=== PATIENT | male | born 1965 | race Caucasian/White ===

== ENCOUNTER 2018-08-02 10:48 | Inpatient (IN) | payer OTHER, MEDICAID, SELFPAY ==
[2018-08-02] VITALS (15 sets, daily range): BP systolic 118–177; BP diastolic 60–88; PULSE 61–78; RESP 13–20; TEMP 36.1–37.4; O2SAT 95–100; BMI 30.8
--- NOTE | 2018-08-02 | DI.RAD.S_ITS ---
PROCEDURE: XR TIBIA FIBULA RT 2V INDICATIONS: LEFT LEG ORIF TECHNIQUE: 2 views of the tibia and fibula were acquired. COMPARISON: None. FINDINGS: Bones: Intraoperative images demonstrate interval open reduction and internal fixation of comminuted distal left tibial fracture with anterograde intramedullary jose antonio and interlocking screw fixation. Postoperative alignment is anatomic. Improved alignment of distal left fibular fracture. Soft tissues: No suspicious soft tissue calcifications or masses. IMPRESSION: Status post interval ORIF of distal left tibial diaphyseal fracture without acute hardware complication. Improved alignment of known distal left fibular fracture. Dictated by: Donavan Martínez M.D. on 08/02/2018 at 18:13 Approved by: Donavan Martínez M.D. on 08/02/2018 at 18:19
--- NOTE | 2018-08-02 10:48 | DI.RAD.S_ITS ---
PROCEDURE: XR ANKLE LT 2V INDICATIONS: fall with obvious deformity TECHNIQUE: 3 views of the ankle were acquired. COMPARISON: None. FINDINGS: Bones: There are moderately displaced comminuted fractures of the distal tibia and fibula. There is mild lateral angulation of the distal fragments. Soft tissues: No tibiotalar joint effusion. Achilles tendon appears normal. IMPRESSION: Distal tibial and fibular fractures as described above Dictated by: Sunitha Jewell M.D. on 08/02/2018 at 11:14 Approved by: Sunitha Jewell M.D. on 08/02/2018 at 11:16
--- NOTE | 2018-08-02 10:49 | DI.RAD.S_ITS ---
PROCEDURE: XR TIBIA FIBULA RT 2V INDICATIONS: obvious deformity TECHNIQUE: 2 views of the tibia and fibula were acquired. COMPARISON: [facility], CT, CT LE LT WO CON, 08/02/2018, 11:27. FINDINGS: Bones: Comminuted fractures are noted involving the distal left tibia and fibula shafts with mild anterior displacement of the distal fracture fragments. No intra-articular extension is evident. There is a retrocalcaneal spur. Irregularity involving the anterior process of the calcaneus is noted. Small ossific/calcific densities are evident at the tip of the medial malleolus. Soft tissues: No suspicious soft tissue calcifications or masses. IMPRESSION: Mildly displaced and comminuted distal left tibia and fibula shaft fractures. Dictated by: Benny Chapa M.D. on 08/02/2018 at 11:43 Approved by: Benny Chapa M.D. on 08/02/2018 at 11:46
--- NOTE | 2018-08-02 11:24 | DI.CT.S_ITS ---
PROCEDURE: CT LE LT W CON INDICATIONS: fracture, request per ortho TECHNIQUE: Noncontrast 1-1.[address] imaging through the left lower leg was performed. Axial, sagittal, and coronal reformatted images are provided for review. COMPARISON: [facility], CR, XR TIBIA FIBULA LT 2V, 08/02/2018, 10:55. FINDINGS: Image quality: Diagnostic. Bones: There is a comminuted fracture identified involving the distal shaft of the tibia with mild anterior displacement of the distal fracture fragment by approximately 1.1 cm and corresponding posterior angulation. No extension of this fracture onto the tibial plafond articular surface is evident. The there also is a mildly comminuted fracture identified involving the distal left fibula shaft. Mild posterior angulation of the distal fracture fragment is identified. There also is anterior displacement of the distal fracture fragment with mild overriding by approximately 11 mm. No extension of this fracture into the joint space is evident. Both fractures demonstrate a moderate lateral rotational displacement and roughly 90?. The ankle mortise appears to be well-maintained. Well-rounded ossific/calcific densities are present in the tip in the medial malleolus, suggesting prior injury. Irregularity involving the anterior process of the calcaneus also suggest previous trauma. There mild to moderate degenerative changes evident involving the mid foot and hindfoot joints. There is a plantar calcaneal spur. Soft tissues: Moderate soft tissue swelling at the fracture sites is evident. No significant muscle atrophy is appreciated. No soft tissue masses or drainable fluid collections are appreciated. Intramuscular edema is noted at the fracture site. Please note that the ligamentous, tendinous, and cartilaginous structures of the knee and ankle joints are not adequately evaluated on CT. IMPRESSION: Comminuted distal tibia and fibula fractures with associated moderate displacement as described. Dictated by: Benny Chapa M.D. on 08/02/2018 at 11:38 Approved by: Benny Chapa M.D. on 08/02/2018 at 11:42
--- NOTE | 2018-08-02 12:18 | ED.LOWEXIN ---
HPI - Extremity Injury (Lower) General Chief Complaint: Extremity Injury, Lower Stated Complaint: Broken L foot Time Seen by Provider: 08/02/18 10:50 Source: patient and EMS Mode of arrival: EMS Limitations: no limitations History of Present Illness HPI Narrative: 52-year-old male nonsmoker with history of diabetes and hypertension presents by aeromedical transport for evaluation of an obviously deformed left lower leg. He was walking his dog when he stepped awkwardly suffering a terrible injury to his lower leg. It is closed, isolated and neurovascularly intact. He was seen and evaluated by primary care provider and flown here for definitive care. He has been NPO since last night. He takes no blood thinners MD complaint: leg injury Onset (ago): hour(s) Type of Injury: inversion Place: home Severity: severe Relieving factors: nothing Exacerbating factors: movement and palpation Context: fall and walking Related Data Home Medications Medication Instructions Recorded Confirmed ferrous sulfate 325 mg PO QPM 08/02/18 08/02/18 insulin glargine [Lantus Solostar 26 units SUBCUT QPM 08/02/18 08/02/18 U-100 Insulin] levothyroxine 88 mcg PO QPM 08/02/18 08/02/18 metoprolol succinate 50 mg PO BID 08/02/18 08/02/18 telmisartan 40 mg PO QPM 08/02/18 08/02/18 Allergies Allergy/AdvReac Type Severity Reaction Status Date / Time atenolol Allergy Severe Chest Pain Verified 08/02/18 14:39 duloxetine [From Cymbalta] Allergy Severe Difficulty Verified 08/02/18 14:39 Breathing hydrocodone [From Vicodin] Allergy Severe afib, Verified 08/02/18 14:39 chest pain oxycodone [From Percocet] Allergy Severe afib Verified 08/02/18 14:39 pregabalin [From Lyrica] Allergy Severe Difficulty Verified 08/02/18 14:39 Breathing Penicillins Allergy Intermediate sob, hives Verified 08/02/18 14:39 Sulfa (Sulfonamide Allergy Intermediate Difficulty Verified 08/02/18 11:11 Antibiotics) Breathing acetaminophen [From Vicodin] Allergy caution Verified 08/02/18 14:37 with liver issues liraglutide [From Victoza] AdvReac Severe Palpitation Verified 08/02/18 12:32 s lisinopril AdvReac Cough Verified 08/02/18 14:39 Review of Systems Constitutional Denies chills, Denies fever(s), Denies lethargy and Denies weakness Eyes Denies change in vision, Denies eye discharge, Denies irritation and Denies loss of vision ENT Ears, Nose, Mouth, and Throat: Denies change in voice, Denies neck pain and Denies sore throat Cardiovascular Denies chest pain, Denies irregular heart rhythm, Denies lightheadedness, Denies palpitations, Denies dyspnea, Denies dyspnea on exertion and Denies orthopnea Respiratory Denies cough, Denies dyspnea, Denies dyspnea on exertion and Denies wheezing Gastrointestinal Gastrointestinal: Denies abdominal pain, Denies change in bowel habits, Denies diarrhea, Denies nausea and Denies vomiting Genitourinary Denies hematuria, Denies flank pain, Denies urinary incontinence and Denies urinary urgency Musculoskeletal Reports limited range of motion and Denies neck pain Integumentary/Breasts Denies pruritus, Denies erythema, Denies rash and Denies wounds Neurologic Denies confusion, Denies loss of vision and Denies weakness Psychiatric Denies anxiety, Denies confusion, Denies depression, Denies homicidal ideation and Denies suicidal ideation Endocrine Denies palpitations Hematologic/Lymphatic Denies easy bruising Allergic/Immunologic Denies wheezing PFSH Medical History Atrial arrhythmia (Acute) Cholecystectomy planned (Acute) Constipation (Acute) Diabetes mellitus (Acute) Hernia (Acute) Hypertension (Acute) Hypothyroidism (acquired) (Acute) Family History Other Diabetes mellitus Social History household members: none Smoking Status: Never smoker alcohol intake: current Family History Other Diabetes mellitus Social History household members: none Smoking Status: Never smoker alcohol intake: current Exam Narrative Exam Narrative: GENERAL: 52-year-old male resting comfortably, left lower extremity splinted HEAD: Atraumatic. Normocephalic. No temporal or scalp tenderness. EYES: Pupils equal round and reactive. Extraocular motions intact. No scleral icterus. No injection or drainage. ENT: Nose without bleeding, purulent drainage or septal hematoma. Throat without erythema, tonsillar hypertrophy or exudate. Uvula midline. Airway patent. NECK: Trachea midline. No JVD or lymphadenopathy. Supple, nontender, no meningeal signs. CARDIOVASCULAR: Regular rate and rhythm without murmurs, gallops, or rubs. RESPIRATORY: Clear to auscultation. Breath sounds equal bilaterally. No wheezes, rales, or rhonchi. GASTROINTESTINAL: Abdomen soft, non-tender, nondistended. No hepato-splenomegaly, or palpable masses. No guarding. EXTREMITIES: Obvious deformity to left lower extremity, clothes, isolated, neurovascularly intact.. BACK: Nontender without deformity or crepitance. No flank tenderness. NEURO: AOx3. SKIN: No rash or erythema. Initial Vital Signs Initial Vital Signs: Vital Signs Temperature 97.8 F 08/02/18 10:58 Pulse Rate 61 08/02/18 10:58 Respiratory Rate 18 08/02/18 10:58 Blood Pressure 170/88 H 08/02/18 10:58 Pulse Oximetry 99 08/02/18 10:58 Course Orders Ordered: ED Orders 08/02/18 10:48 XR ankle LT 2V Stat 08/02/18 10:49 XR tibia fibula LT 2V Stat 08/02/18 11:24 CT LE LT wo con Stat 08/02/18 12:08 Basic Metabolic Panel Stat Prothrombin Time INR Stat 08/02/18 12:50 Complete Blood Count AUTO DIFF Stat 08/02/18 13:21 Education, smoking cessation ONGOING 08/03/18 05:00 Basic Metabolic Panel Routine Complete Blood Count AUTO DIFF Routine Fentanyl (Sublimaze) 50 mcg IV Q5MIN PRN PRN Reason: Pain, Moderate (4-6) Ferrous Sulfate (Ferrous Sulfate) 325 mg PO QPM ENRIQUE Sodium Chloride (Normal Saline 0.9%) 1,000 mls @ 100 mls/hr IV CONT ENRIQUE Lactated Ringer's (Lactated Ringers) 1,000 mls @ 42 mls/hr IV NOW ONE Stop: 08/03/18 17:12 Last Infusion: 08/02/18 18:45 Dose: 0 mls/hr Admin: 08/02/18 17:25 Dose: 42 mls/hr Ibuprofen (Advil) 600 mg PO Q6HR PRN PRN Reason: As Needed for Fever/Mild Pain Insulin Glargine (Lantus Solostar (Pen)) 26 unit SUBCUT QPM [facility] Levothyroxine Sodium (Synthroid) 88 mcg PO QPM [facility] Lorazepam (Ativan) 0.5 mg IV NOW PRN PRN Reason: Anxiety Metoclopramide HCl (Reglan) 10 mg IV NOW PRN PRN Reason: Nausea And Vomiting Metoprolol Succinate (Toprol Xl) 50 mg PO BID [facility] Morphine Sulfate (Morphine) 2 mg IV Q4HR PRN PRN Reason: Pain, Moderate (4-6) Morphine Sulfate (Morphine) 2 mg IV Q5M PRN PRN Reason: Pain, Moderate (4-6) Ondansetron HCl (Zofran) 4 mg IV Q8HR PRN PRN Reason: Nausea And Vomiting Ondansetron HCl (Zofran) 4 mg IV NOW PRN PRN Reason: Nausea And Vomiting Telmisartan (Micardis) 40 mg PO QPM [facility] Discontinued Medications Bupivacaine HCl/Epinephrine Bitart (Sensorcaine 0.5% W/ Epi (Pf)) 30 ml INJ NOW ONE Stop: 08/02/18 16:40 Last Admin: 08/02/18 16:40 Dose: 15 ml Cefazolin Sodium/Dextrose (Ancef) 2 gm in 100 mls @ 200 mls/hr IV NOW ONE Stop: 08/02/18 14:10 Clindamycin Phosphate (Cleocin) 900 mg in 50 mls @ 50 mls/hr IV NOW ONE Stop: 08/02/18 17:31 Last Infusion: 08/02/18 15:50 Dose: 0 mls/hr Admin: 08/02/18 15:45 Dose: 50 mls/hr Morphine Sulfate (Morphine) 2 mg IV NOW ONE Stop: 08/02/18 13:03 Last Admin: 08/02/18 13:16 Dose: 2 mg Consultations Consultation #1: Dr. Chappell consulted and will likely take to the OR later tonight, requests admission to hospitalist and CT for further evaluation Consultation #2: hospitalist happy to accept on his service Vital Signs - 8 hr 08/02/18 13:21 08/02/18 13:40 08/02/18 14:13 Temperature 98.5 F 98.8 F Pulse Rate 65 64 68 Respiratory Rate 16 20 18 Blood Pressure 177/72 H 164/76 H Blood Pressure [Right Arm] 158/88 H Pulse Oximetry 100 100 100 08/02/18 18:07 08/02/18 18:12 08/02/18 18:17 Temperature 97.5 F L 97.1 F L Pulse Rate 71 72 71 Respiratory Rate 13 15 14 Blood Pressure 125/67 129/69 118/70 Blood Pressure [Right Arm] Pulse Oximetry 97 95 96 08/02/18 18:22 08/02/18 18:37 08/02/18 18:47 Temperature 97 F L Pulse Rate 72 69 70 Respiratory Rate 15 14 14 Blood Pressure 139/60 140/64 151/80 H Blood Pressure [Right Arm] Pulse Oximetry 97 98 96 MDM - Extremity Injury (Lower) Lab Data Result diagrams: 08/02/18 12:50 08/02/18 12:08 Lab Results 08/02/18 08/02/18 08/02/18 Range/Units 12:08 12:08 12:50 WBC 8.8 (4.5-11.0) X10^3/uL RBC 3.38 L (4.5-5.9) X10^6/uL Hgb 11.4 L (13.5-17.5) g/dL Hct 34.4 L (41-53) % MCV 101.6 H (80-100) fL MCH 33.8 (26-34) PG MCHC 33.2 (30-36) % RDW 12.4 (11.6-14.8) % Plt Count 151 (150-400) X10^3/uL Neut % (Auto) 79.2 H (50-75) % Lymph % (Auto) 15.6 L (25-40) % [place] % (Auto) 4.2 (3-14) % Eos % (Auto) 0.6 L (2-4) % Baso % (Auto) 0.4 (0-2) % Neut # (Auto) 7000 (5331-3600) /uL Lymph # (Auto) 1400 (8297-7579) /uL [place] # (Auto) 400 (0-900) /uL Eos # (Auto) 100 (0-450) /uL Baso # (Auto) 0 (0-100) /uL PT 12.1 (10.1-12.7) SECONDS INR 1.0 (0.9-1.3) Sodium 138 (137-145) mmol/L Potassium 6.2 H (3.4-5.1) mmol/L Chloride 107 (98-107) mmol/L Carbon Dioxide 22 (22-32) mmol/L BUN 27 H (9-20) mg/dL Creatinine 1.80 H (0.66-1.25) mg/dL Estimated GFR 39.8 L (>60) mL/min BUN/Creatinine Ratio 15.0 (6-22) Glucose 171 H (70-100) mg/dL Calcium 9.0 (8.4-10.2) mg/dL Point of Care Testing Glucose POC 161 Imaging Data Tib / Fib Xray: Radiologist's impression: [address] [address] XRay Report Signed Patient: Evelyn Jensen#: [id number] : 1965Acct:[id number] Age/Sex: 52 / MDate of Service: 08/02/18 Loc: GI23M-5 Accession Number: [id number] Procedure: XR tibia fibula LT 2V Ordering Provider: Wong Rosario D.O. PROCEDURE: XR TIBIA FIBULA RT 2V INDICATIONS: obvious deformity TECHNIQUE: 2 views of the tibia and fibula were acquired. COMPARISON: [facility], CT, CT LE LT WO CON, 08/02/2018, 11:27. FINDINGS: Bones: Comminuted fractures are noted involving the distal left tibia and fibula shafts with mild anterior displacement of the distal fracture fragments. No intra-articular extension is evident. There is a retrocalcaneal spur. Irregularity involving the anterior process of the calcaneus is noted. Small ossific/calcific densities are evident at the tip of the medial malleolus. Soft tissues: No suspicious soft tissue calcifications or masses. IMPRESSION: Mildly displaced and comminuted distal left tibia and fibula shaft fractures. Dictated by: Benny Chapa M.D. on 08/02/2018 at 11:43 Approved by: Benny Chapa M.D. on 08/02/2018 at 11:46 CT Leg: Radiologist's impression: Patient: Evelyn Jensen#: [id number] : 1965Acct:[id number] Age/Sex: 52 / MDate of Service: 08/02/18 Loc: US85O-0 Accession Number: [id number] Procedure: CT LE LT wo con Ordering Provider: Wong Rosario D.O. PROCEDURE: CT LE LT W CON INDICATIONS: fracture, request per ortho TECHNIQUE: Noncontrast 1-1.[address] imaging through the left lower leg was performed. Axial, sagittal, and coronal reformatted images are provided for review. COMPARISON: [facility], CR, XR TIBIA FIBULA LT 2V, 08/02/2018, 10:55. FINDINGS: Image quality: Diagnostic. Bones: There is a comminuted fracture identified involving the distal shaft of the tibia with mild anterior displacement of the distal fracture fragment by approximately 1.1 cm and corresponding posterior angulation. No extension of this fracture onto the tibial plafond articular surface is evident. The there also is a mildly comminuted fracture identified involving the distal left fibula shaft. Mild posterior angulation of the distal fracture fragment is identified. There also is anterior displacement of the distal fracture fragment with mild overriding by approximately 11 mm. No extension of this fracture into the joint space is evident. Both fractures demonstrate a moderate lateral rotational displacement and roughly 90?. The ankle mortise appears to be well-maintained. Well-rounded ossific/calcific densities are present in the tip in the medial malleolus, suggesting prior injury. Irregularity involving the anterior process of the calcaneus also suggest previous trauma. There mild to moderate degenerative changes evident involving the mid foot and hindfoot joints. There is a plantar calcaneal spur. Soft tissues: Moderate soft tissue swelling at the fracture sites is evident. No significant muscle atrophy is appreciated. No soft tissue masses or drainable fluid collections are appreciated. Intramuscular edema is noted at the fracture site. Please note that the ligamentous, tendinous, and cartilaginous structures of the knee and ankle joints are not adequately evaluated on CT. IMPRESSION: Comminuted distal tibia and fibula fractures with associated moderate displacement as described. Dictated by: Benny Chapa M.D. on 08/02/2018 at 11:38 Approved by: Benny Chapa M.D. on 08/02/2018 at 11:42 Discharge Plan Departure Patient Disposition: Admitted As Inpatient Clinical Impression: Closed tibial fracture Qualifiers: Encounter type: initial encounter Tibia location: shaft Fracture morphology: comminuted Fracture alignment: displaced Laterality: left Qualified Code(s): S82.252A - Displaced comminuted fracture of shaft of left tibia, initial encounter for closed fracture Discharge Date/Time: 08/02/18 13:21 Interventions: ED Discharge Assessment Last Done: 08/02/18 13:14 Admit Date/Time: 08/02/18 12:42 Admit Provider: Jethro Domingo
[2018-08-02 12:36] LABS: Prothrombin Time 12.1 SECONDS (10.1-12.7)
[2018-08-02 12:39] LABS: Blood Urea Nitrogen 27 mg/dL (9-20); Carbon Dioxide 22 mmol/L (22-32); Chloride 107 mmol/L (98-107); Estimated Glomerular Filt Rate 39.8 mL/min (>60); Glucose 171 mg/dL (70-100); Sodium 138 mmol/L (137-145)
[2018-08-02 12:40] LABS: HEMOLYSIS 67 (0-50); Potassium 6.2 mmol/L (3.4-5.1)
[2018-08-02 13:03] LABS: Add Manual Diff / Slide Review NO; Basophils Absolute Auto 0 /uL (0-100); Basophils Percent Auto 0.4 % (0-2); Eosinophils Absolute Auto 100 /uL (0-450); Eosinophils Percent Auto 0.6 % (2-4); Hematocrit 34.4 % (41-53); Hemoglobin 11.4 g/dL (13.5-17.5); Lymphocytes Absolute Auto 1400 /uL (1100-4500); Lymphocytes Percent Auto 15.6 % (25-40); Mean Corpuscular HGB Conc 33.2 % (30-36); Mean Corpuscular Hemoglobin 33.8 PG (26-34); Mean Corpuscular Volume 101.6 fL (80-100); Monocytes Absolute Auto 400 /uL (0-900); Monocytes Percent Auto 4.2 % (3-14); Neutrophils Absolute Auto 7000 /uL (1500-7000); Neutrophils Percent Auto 79.2 % (50-75); Platelet Count 151 X10^3/uL (150-400); Red Blood Cell Count 3.38 X10^6/uL (4.5-5.9); Red Cell Distribution Width 12.4 % (11.6-14.8); White Blood Cell Count 8.8 X10^3/uL (4.5-11.0)
[2018-08-02] MEDS: MORPHINE 2 MG/ML INJ IV (13:16)
--- NOTE | 2018-08-02 13:28 | P.HP_ITS ---
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 Dr. Chappell from Orthopedics has evaluated him and is taking him for an open reduction internal fixation today. He has a history of hypertension, chronic kidney disease and intermittent atrial fibrillation. He lives in [place] where his primary care physician is but is visiting up here, while selling his father's house currently. He says he has always had a mild anemia. Patient History Medical History (Updated 08/02/18 @ 19:26 by Jethro Domingo MD) Atrial arrhythmia (Acute) Cholecystectomy planned (Acute) Constipation (Acute) Diabetes mellitus (Acute) Hernia (Acute) Hernia, umbilical (Acute) Hypertension (Acute) Hypothyroidism (acquired) (Acute) Normocytic anemia (Acute) Surgical History (Updated 08/02/18 @ 19:26 by Jethro Domingo MD) Hx of inguinal hernia surgery (Acute) Family History (Updated 08/02/18 @ 19:36 by Jethro Domingo MD) Mother Cancer Father Old age Other Diabetes mellitus Social History household members: none Smoking Status: Never smoker alcohol intake: current Family & Social History Family History (Updated 08/02/18 @ 19:36 by Jethro Domingo MD) Mother Cancer Father Old age Other Diabetes mellitus Family history unavailable: No Social History: His backup decision maker is Orquidea Snell. He is full code. He uses alcohol rarely and denies smoking and THC. Safety & Behavioral: Feels Safe in Current Yes Environment Been Physically Hurt or No Threatened By a Person Meds Home Medications Medication Instructions Recorded Confirmed Type ferrous sulfate 325 mg PO QPM 08/02/18 08/02/18 History insulin glargine [Lantus Solostar 26 units SUBCUT QPM 08/02/18 08/02/18 History U-100 Insulin] levothyroxine 88 mcg PO QPM 08/02/18 08/02/18 History metoprolol succinate 50 mg PO BID 08/02/18 08/02/18 History telmisartan 40 mg PO QPM 08/02/18 08/02/18 History Allergies Allergy/AdvReac Type Severity Reaction Status Date / Time atenolol Allergy Severe Chest Pain Verified 08/02/18 14:39 duloxetine [From Cymbalta] Allergy Severe Difficulty Verified 08/02/18 14:39 Breathing hydrocodone [From Vicodin] Allergy Severe afib, Verified 08/02/18 14:39 chest pain oxycodone [From Percocet] Allergy Severe afib Verified 08/02/18 14:39 pregabalin [From Lyrica] Allergy Severe Difficulty Verified 08/02/18 14:39 Breathing Penicillins Allergy Intermediate sob, hives Verified 08/02/18 14:39 Sulfa (Sulfonamide Allergy Intermediate Difficulty Verified 08/02/18 11:11 Antibiotics) Breathing acetaminophen [From Vicodin] Allergy caution Verified 08/02/18 14:37 with liver issues liraglutide [From Victoza] AdvReac Severe Palpitation Verified 08/02/18 12:32 s lisinopril AdvReac Cough Verified 08/02/18 14:39 Review of Systems Review of Systems Positive for ankle pain and recent fall. Negative for fevers, chills, sweats, coughing, chest pain, abdominal pain, nausea, vomiting, diarrhea, rectal bleeding, rash, seizures, trouble talking, new allergies, dysuria All systems reviewed & are unremarkable except as noted in HPI and below Exam Vital Signs (past 8 hours): - 08/02/18 10:58 08/02/18 13:21 Temperature 97.8 F Pulse Rate 61 65 Respiratory Rate 18 16 Blood Pressure 170/88 H Blood Pressure [Right Arm] 158/88 H Pulse Oximetry 99 100 Oxygen Delivery Method Room Air Narrative Exam Narrative: Alert and oriented x3. No apparent distress. Pupils are equally round and reactive to light and accommodation. Extraocular muscles are intact. Sclerae are pink and nonicteric. Throat looks normal. He has a full set of teeth on the bottom but no teeth at all on the top. No lymph nodes are felt head, neck, supraclavicular area. There is no thyromegaly. No carotid bruits are heard. JVD is less than 6 cm. Heart is regular rate and rhythm without murmur. Lungs are clear to auscultation bilaterally. Abdomen is soft, bowel sounds positive, nontender, no organomegaly. Extremities have no ankle edema. There is a splint on the left ankle. Cranial nerves 2-12 tested intact. There is no tremor. Motor function is 5/5 throughout. Balance is not tested due to the ankle fracture. Deep tendon reflexes are symmetric. There is no skin rash or jaundice. Objective Labs Result Diagrams: 08/02/18 12:50 08/02/18 12:08 Labs: Laboratory Results - last 24 hr 08/02/18 08/02/18 08/02/18 12:08 12:08 12:50 WBC 8.8 RBC 3.38 L Hgb 11.4 L Hct 34.4 L MCV 101.6 H MCH 33.8 MCHC 33.2 RDW 12.4 Plt Count 151 Neut % (Auto) 79.2 H Lymph % (Auto) 15.6 L [place] % (Auto) 4.2 Eos % (Auto) 0.6 L Baso % (Auto) 0.4 Neut # (Auto) 7000 Lymph # (Auto) 1400 [place] # (Auto) 400 Eos # (Auto) 100 Baso # (Auto) 0 PT 12.1 INR 1.0 Sodium 138 Potassium 6.2 H Chloride 107 Carbon Dioxide 22 BUN 27 H Creatinine 1.80 H Estimated GFR 39.8 L BUN/Creatinine Ratio 15.0 Glucose 171 H Calcium 9.0 Assessment & Plan Assessment & Plan narrative: Left Tib/Fib Fracture -he has gone for surgical repair to the OR mid day today. -orthopedics will be following him and discharge will depend on their recommendations for weight-bearing/rehabilitation. -recheck CBC tomorrow Diabetes mellitus type 1.5 -Resume Lantus 26 units at night when able to take regular diet -carb choice diet ordered Chronic kidney disease type 3 -recheck BMP tomorrow Paroxysmal atrial fibrillation -This is apparently only a rare problem for him and has in the past been related to use of Percocet and Vicodin which will be avoided at this time. He apparently does well with morphine. Hypertension -continue telmisartan, metoprolol. Normocytic anemia -continue ferrous sulfate and recheck CBC tomorrow Hypothyroidism -continue levothyroxine
--- NOTE | 2018-08-02 13:28 | PM.CN ---
History of Present Illness Date Patient Seen: 08/02/18 Time Patient Seen: 13:28 Chief complaint: Broken L foot Reason for consult: Left distal tibia and fibula fracture Requesting provider: Wong Rosario Narrative: 52-year-old male with a left distal tibia and fibula fracture. He was walking his dog down his steep driveway earlier this morning. He stumbled and tripped and felt a pop as he went down. He was unable to ambulate afterwards. He did not have any prodromal shortness of breath, chest pain or dizziness. He did not hit his head. He is not hurting anywhere else. He had obvious deformity to the leg and was airlifted from [place] to the emergency room. pain is sharp although better with the splint. He has a history of difficulty with narcotics. Vicodin and Percocet have given him atrial fibrillation. He can tolerate morphine. He is an insulin-dependent diabetic with chronic renal failure. He also has a history of anemia. He lives with his father. [facility] Medical History Atrial arrhythmia (Acute) Cholecystectomy planned (Acute) Constipation (Acute) Diabetes mellitus (Acute) Hernia (Acute) Hypertension (Acute) Family History (Updated 08/02/18 @ 13:30 by Hollis Chappell MD) Other Diabetes mellitus Social History household members: none Smoking Status: Never smoker alcohol intake: current Social History household members: none Smoking Status: Never smoker alcohol intake: current Meds Home Medications Medication Instructions Recorded Confirmed Type ferrous sulfate 325 mg PO QPM 08/02/18 08/02/18 History insulin glargine [Lantus Solostar 26 units SUBCUT QPM 08/02/18 08/02/18 History U-100 Insulin] levothyroxine 88 mcg PO QPM 08/02/18 08/02/18 History metoprolol succinate 50 mg PO BID 08/02/18 08/02/18 History telmisartan 40 mg PO QPM 08/02/18 08/02/18 History Allergies Allergy/AdvReac Type Severity Reaction Status Date / Time Sulfa (Sulfonamide Allergy Intermediate Difficulty Verified 08/02/18 11:11 Antibiotics) Breathing acetaminophen [From Vicodin] Allergy Verified 08/02/18 11:11 atenolol Allergy Chest Pain Verified 08/02/18 11:13 duloxetine [From Cymbalta] Allergy Difficulty Verified 08/02/18 11:23 Breathing hydrocodone [From Vicodin] Allergy Chest Pain Verified 08/02/18 11:12 oxycodone [From Percocet] Allergy Verified 08/02/18 11:12 Penicillins Allergy Verified 08/02/18 13:47 pregabalin [From Lyrica] Allergy Difficulty Verified 08/02/18 11:24 Breathing liraglutide [From Victoza] AdvReac Severe Palpitation Verified 08/02/18 12:32 s lisinopril AdvReac Verified 08/02/18 11:14 Review of Systems Constitutional Constitutional: Denies chills, Denies excessive sweating and Denies fever(s) Eyes Eyes: Denies blurry vision Cardiovascular Cardiovascular: Denies chest pain Respiratory Respiratory: Denies chest congestion and Denies wheezing Gastrointestinal Gastrointestinal: Denies abdominal pain Musculoskeletal Musculoskeletal: Reports as per HPI Neurologic Neurologic: Denies behavioral changes Comments: Decreased sensation from peripheral neuropathy in both feet to the ankles Psychiatric Psychiatric: Denies behavioral changes Endocrine Endocrine: Denies excessive sweating Hematologic/Lymphatic Hematologic/Lymphatic: Denies easy bleeding Allergic/Immunologic Allergic/Immunologic: Denies wheezing Exam Vital Signs (past 8 hours): - 08/02/18 10:58 08/02/18 13:21 Temperature 97.8 F Pulse Rate 61 65 Respiratory Rate 18 16 Blood Pressure 170/88 H Blood Pressure [Right Arm] 158/88 H Pulse Oximetry 99 100 Oxygen Delivery Method Room Air Const Orientation: alert and oriented x3 Resp Auscultation: clear to auscultation bilaterally Cardio Rate: regular rate Rhythm: regular rhythm Extrem Other: Mild swelling in the distal left tibia. 1+ dorsalis pedis pulse. Can easily wiggle toes but uncomfortable. Slightly decreased sensation but intact up to ankle and normal above this. Intact integument over the distal tibia. Objective Imaging Left tibia x-ray: My impression: Displaced comminuted fracture of the distal tibia and fibula shafts CT scan of left leg: My impression: Extra-articular fracture of the distal tibia, ending approximately 3.5 cm above the physis. Extra-articular fracture of the distal fibular shaft, well above the ankle. Labs Result Diagrams: 08/02/18 12:50 08/02/18 12:08 Labs: Laboratory Results - last 24 hr 08/02/18 08/02/18 08/02/18 12:08 12:08 12:50 WBC 8.8 RBC 3.38 L Hgb 11.4 L Hct 34.4 L MCV 101.6 H MCH 33.8 MCHC 33.2 RDW 12.4 Plt Count 151 Neut % (Auto) 79.2 H Lymph % (Auto) 15.6 L [place] % (Auto) 4.2 Eos % (Auto) 0.6 L Baso % (Auto) 0.4 Neut # (Auto) 7000 Lymph # (Auto) 1400 [place] # (Auto) 400 Eos # (Auto) 100 Baso # (Auto) 0 PT 12.1 INR 1.0 Sodium 138 Potassium 6.2 H Chloride 107 Carbon Dioxide 22 BUN 27 H Creatinine 1.80 H Estimated GFR 39.8 L BUN/Creatinine Ratio 15.0 Glucose 171 H Calcium 9.0 Assessment & Plan Assessment & Plan narrative: Left distal tibia and fibula fracture- these are extra-articular and high enough above the physis that we should be able to treat this adequately with an intramedullary nail. The fibular fracture is well above the ankle itself and should be fine with stability from the IM nail in the tibia. Risks and benefits of surgery were discussed including not limited to medical risk with heart attack, stroke, , DVT, PE, infection, bleeding, scarring, nerve injury with pain numbness weakness, nonunion, failure to alleviate symptoms, loss of ambulatory status, stiffness, laxity, need for further surgery Medical conditions to be co managed with the medicine service while in the hospital. Diabetes-plan for close glucose monitoring and treatment while in the hospital. Anemia -I do not anticipate excessive blood loss, this should be stable. Chronic renal failure -will monitor in the hospital
--- NOTE | 2018-08-02 13:55 | PM.PREOP ---
Pre-operative Note Interval Note History & Physical reviewed/Exam performed by Physician: Yes Changes to H&P: No
--- NOTE | 2018-08-02 14:01 | PC.NURSE ---
1340 Pt arrived from ED via stretcher. Pt alert & oriented x 4. Pt on r/a . Pt has splint to LLE done by EMS in the [place]. Assisted Pt to stand & pivot into bed. Pt lisa well. 1400 Pt gone via bed to OR .
[2018-08-02] MEDS: CLINDAMYCIN 900 MG/50 ML PIGGYBACK 50 MG IV ×2 (15:45→23:49)
--- NOTE | 2018-08-02 15:54 | P.OP_ITS ---
Operative Date/Time/Diagnoses Date of procedure: 08/02/18 Pre-op diagnosis: closed left distal tibia/fibula shaft fracture Post-op diagnosis: same Procedure & Clinicians Procedure: IM nail Left tibia Same procedure as scheduled: Yes Indications: 52-year-old male with a displaced left distal tibia and fibula fracture. It was felt that he would benefit from ORIF. Risks and benefits of surgery were discussed and appropriate consents obtained. Surgeon: Hollis Chappell Click Yes if Unassisted: Yes Anesthesia Type: General Operative Notes Findings: none Closure Type: primary Specimen(s): none sent Prosthetic devices, grafts, tissues, transplants, or devices: [employer] IM tibial nail -Metanail Applied: catheter Estimated Blood Loss (mL): 30 Blood products transfused: none Procedure in detail: Patient brought to the operating room and intubated on the table. Preoperative antibiotics were given. Time-out was performed. Attention was turned towards the well-marked left leg. A well-padded tourniquet was placed but not inflated. The left leg was prepped and draped in the standard sterile fashion. He was positioned over a radiolucent triangle and x-rays were taken and the fracture was reduced and held with a pelvic clamp. We made a 5 cm longitudinal incision on the medial aspect of the patellar tendon. We sharply split down along the lateral edge to split the retinaculum. We then placed our guidewire. Position was confirmed with fluoroscopy in two views. We then advanced the guidewire down the proximal tibia under fluoroscopy. We did our proximal reaming and then passed a guidewire down the tibial shaft distally across the fracture plane and in to the distal fragment down to the level of the physis using fluoro to visualize our reduction distally. We began reaming with care to hold the fracture well reduced distally every time the Reamer would pass. We then measured and placed our intramedullary nail. We fixed this with 3 distal screws and 2 proximal screws. We used the guide proximally and the Sureshot technique distally. Final x-rays were taken. The wounds were irrigated. The retinaculum and superficial and skin were closed over the knee. The superficial and skin were closed distally. sterile dressings were placed. He was placed in a well-padded posterior splint with stirrups. He was then extubated brought to recovery with no complications. Complications: none Condition: stable Disposition: PACU Plan for aftercare: Inpatient. Up with physical therapy. Touchdown weight- bearing on the left.
--- NOTE | 2018-08-02 16:27 | SUR.OPER ---
Supine on padded OR bed, head on pillow, arms secured on padded arm boards at <90 degrees abduction, legs uncrossed, safety belt at thigh, tape over blanket over lower legs.
[2018-08-02] MEDS: BUPIVACAINE 0.5% W/ EPI (PF) VIAL 30 ML INJ (16:40)
--- NOTE | 2018-08-02 16:40 | PM.PROC.1 ---
Procedures Date/Time Date of procedure: 08/02/18 Time of procedure: 15:05 General Procedure description: Ultrasound guided popliteal sciatic nerve block for post op pain control after left tibia IM nail by Dr. Chappell. Risks and benefits of procedure discussed with patient. ASA monitoring applied to patient. Oxygen given via nasal cannula. 1 mg Versed and 50 mcg fentanyl given for procedural sedation. Skin site was prepped with chlorhexidine and allowed to fully dry. Sterile gloves, mask, hat and probe cover were used to maintain sterility. 2% lidocaine and 30ga needle was used to make a small skin wheal at needle insertion site. Under ultrasound guidance, a 21ga 100mm Pajunk needle was directed near the division of the sciatic nerve into tibial and peroneal nerve in the popliteal fossa (lateral approach). After negative aspiration, 20 mL 0.5% ropivicaine and 5 mg dexamethasone were injected around sciatic nerve. Patient tolerated procedure well. Second nerve block was performed on left saphenous nerve in the adductor canal using US approach at mid thigh. Femoral artery identified and avoided. After negative aspiration, 20mL 0.5% ropivicaine and 5 mg dexamethasone was injected with low resistance. US of Sciatic nerve above, US of saphenous below
[2018-08-02] MEDS: LACTATED RINGERS 1,000 ML 42 ML IV (17:25)
--- NOTE | 2018-08-02 18:50 | SUR.PHASEI ---
Pt transferred to room 206 via bed with glasses. All other belongings left in room prior to coming to OR. Pt's last vital signs stable. Awake, alert, no c/o pain. Report given to JESSICA Norman prior to transfer.
[2018-08-02] MEDS: LACTATED RINGERS 1,000 ML 125 ML IV (20:08)
[2018-08-02] MEDS: FERROUS SULFATE 325 MG TABLET PO (20:12)
[2018-08-02] MEDS: TELMISARTAN 40 MG TABLET PO (20:13)
[2018-08-02] MEDS: LEVOTHYROXINE 88 MCG TABLET PO (20:13)
[2018-08-02] MEDS: ACETAMINOPHEN 325 MG TABLET 975 MG PO (20:14)
[2018-08-02] MEDS: INSULIN GLARGINE 100 UNIT/ML 3ML PEN 26 UNIT SUBCUT (22:03)
[2018-08-03 01:12] VITALS: BP 139/72; PULSE 75; RESP 18; TEMP 36.5; O2SAT 98
[2018-08-03] MEDS: INSULIN ASPART 100 UNIT/ML INSULN PEN SUBCUT ×2 (03:24→08:25)
[2018-08-03 04:59] VITALS: BP 145/73; PULSE 75; RESP 18; TEMP 36.9; O2SAT 98
[2018-08-03] MEDS: LACTATED RINGERS 1,000 ML 125 ML IV (05:10)
[2018-08-03 06:57] LABS: Hematocrit 27.7 % (41-53); Hemoglobin 9.6 g/dL (13.5-17.5); Mean Corpuscular HGB Conc 34.8 % (30-36); Mean Corpuscular Hemoglobin 35.1 PG (26-34); Platelet Count 123 X10^3/uL (150-400); Red Blood Cell Count 2.74 X10^6/uL (4.5-5.9); Red Cell Distribution Width 12.2 % (11.6-14.8); White Blood Cell Count 6.8 X10^3/uL (4.5-11.0)
[2018-08-03 07:29] LABS: BUN Creatinine Ratio 16.7 (6-22); Blood Urea Nitrogen 30 mg/dL (9-20); Calcium 8.8 mg/dL (8.4-10.2); Carbon Dioxide 22 mmol/L (22-32); Chloride 103 mmol/L (98-107); Estimated Glomerular Filt Rate 39.8 mL/min (>60); Glucose 246 mg/dL (70-100); HEMOLYSIS < 15 (0-50); Sodium 136 mmol/L (137-145)
[2018-08-03 07:46] LABS: Potassium 5.8 mmol/L (3.4-5.1)
--- NOTE | 2018-08-03 07:59 | PC.NURSE ---
Addendum entered by Paul Herrera R.N. 08/03/18 13:52: Instructions given, Pt readied for d/c and ride to [facility]. Pt ready for d/c, states he is ready knows who to call with questions at 's office. IV d/c'd intact. Addendum entered by Paul Herrera R.N. 08/03/18 11:51: Stock removed per kalli. Pt states my have a bit of a difficult time voiding and will need to stand up. Original Note: Pt alert and oriented, voices concerns appropriately. Left lower extremity wrapped, clean dry and intact. Pt offers no pain complaint at present. Follows commands. Using IS appropriately.
[2018-08-03 08:00] VITALS: BP 161/76; PULSE 74; RESP 16; TEMP 36.6; O2SAT 99
[2018-08-03] MEDS: CLINDAMYCIN 900 MG/50 ML PIGGYBACK 50 MG IV (08:16)
[2018-08-03 08:23] VITALS: BP 161/76; PULSE 74
[2018-08-03] MEDS: METOPROLOL ER 50 MG TABLET PO (08:23)
[2018-08-03] MEDS: ENOXAPARIN 30 MG/0.3 ML SYRINGE SUBCUT (08:24)
--- NOTE | 2018-08-03 08:40 | P.PN_ITS ---
Subjective Date Patient Seen: 08/03/18 Time Patient Seen: 08:40 Interval history: POD #1 s/p ORIF distal tibia and fibula fracture with Dr. Chappell. His foot is still numb from the block. He also notes a history of diabetic neuropathy. Not requiring any pain medication. He has not worked with PT yet, and will be touchdown weight-bearing on the left. Exam Vital Signs (past 8 hours): - 08/03/18 01:12 08/03/18 04:59 08/03/18 08:00 Temperature 97.7 F 98.5 F 97.9 F Pulse Rate 75 75 74 Respiratory Rate 18 18 16 Blood Pressure 139/72 145/73 H 161/76 H Pulse Oximetry 98 98 99 08/03/18 08:23 Temperature Pulse Rate 74 Respiratory Rate Blood Pressure 161/76 H Pulse Oximetry Oxygen Delivery Method Room Air Oxygen Flow Rate 0 Narrative Exam Narrative: Patient sitting up in bed in NAD. He is alert and oriented X3. Splint on left foot is well fitting and intact. Sensation intact to light touch and brisk capillary refill of left toes. Objective Labs Result Diagrams: 08/03/18 06:55 08/03/18 06:55 Labs: Laboratory Results - last 24 hr 08/02/18 08/02/18 08/02/18 12:08 12:08 12:50 WBC 8.8 RBC 3.38 L Hgb 11.4 L Hct 34.4 L MCV 101.6 H MCH 33.8 MCHC 33.2 RDW 12.4 Plt Count 151 Neut % (Auto) 79.2 H Lymph % (Auto) 15.6 L Campbell % (Auto) 4.2 Eos % (Auto) 0.6 L Baso % (Auto) 0.4 Neut # (Auto) 7000 Lymph # (Auto) 1400 Campbell # (Auto) 400 Eos # (Auto) 100 Baso # (Auto) 0 PT 12.1 INR 1.0 Sodium 138 Potassium 6.2 H Chloride 107 Carbon Dioxide 22 BUN 27 H Creatinine 1.80 H Estimated GFR 39.8 L BUN/Creatinine Ratio 15.0 Glucose 171 H Calcium 9.0 08/03/18 08/03/18 06:55 06:55 WBC 6.8 RBC 2.74 L Hgb 9.6 L Hct 27.7 L MCV 101.0 H MCH 35.1 H MCHC 34.8 RDW 12.2 Plt Count 123 L Neut % (Auto) Lymph % (Auto) Campbell % (Auto) Eos % (Auto) Baso % (Auto) Neut # (Auto) Lymph # (Auto) Campbell # (Auto) Eos # (Auto) Baso # (Auto) PT INR Sodium 136 L Potassium 5.8 H Chloride 103 Carbon Dioxide 22 BUN 30 H Creatinine 1.80 H Estimated GFR 39.8 L BUN/Creatinine Ratio 16.7 Glucose 246 H Calcium 8.8 Assessment & Plan Post-op (1) Closed tibial fracture: Postoperative Procedures Operation Date: 08/02/18 15:00 Actual Procedures Side Surgeon p Intramedullary Nailing Tibia Left Hollis Chappell MD Plan to DC today. Will be touchdown weight-bearing on the left. Lovenox for VTE prophylaxis. Follow up with our office in 1-2 days. Quality VTE Deep Vein Thrombosis/Pulmonary Embolism Present on Admission: No
--- NOTE | 2018-08-03 08:56 | PM.DS.1 ---
History of Present Illness Chief complaint: Broken L foot Narrative: This is a 52-year-old male, long-term diabetic type 1.5 who was walking his dog today and tripped on some loose gravel fracturing the left ankle. Dr. Chappell from Orthopedics has evaluated him and is taking him for an open reduction internal fixation today. He has a history of hypertension, chronic kidney disease and intermittent atrial fibrillation. He lives in [place] where his primary care physician is but is visiting up here, while selling his father's house currently. He says he has always had a mild anemia. Discharge Providers Date of admission: 08/02/18 12:42 Discharge Date: 08/03/18 Consults: 08/02/18 19:14 Consult to Discharge Planning Routine Comment: Consult to Physical Therapy Evaluate & Treat Comment: Physician Instructions: Evaluate and Treat Consult to Respiratory Therapy Evaluate & Treat Comment: Physician Instructions: Evaluate and treat Discharge provider: Akhil Berkowitz MD Summary Discharge Diagnosis: 1. Closed left distal tibia/fibula shaft fracture 2. Chronic kidney disease, stage III 3. Chronic hyperkalemia 4. 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 Chronic anemia 6. Acute blood loss anemia due to lower leg fracture Hospital Course: Patient had ORIF on 08/02/[address] Hollis Chappell of left distal tibia and fibula fracture. Surgery was uncomplicated. He is toe-touch weight-bearing on the left. He has chronic kidney disease with stable labs relative to November 2017 outside labs. He has chronic potassium elevation but on this admission his initial potassium was 6.2 and repeat potassium following morning was 5.8 versus potassium of 5.2 back in November 2017 on outside labs. His angiotensin receptor anna was changed to telmisartan about a month ago. We have decreased his telmisartan dosage from 40 mg down to 20 mg daily due to the hyperkalemia. He has chronic anemia with acute component due to blood loss from leg fracture with initial hemoglobin 11.4 and discharge hemoglobin 9.6. He is asymptomatic from this anemia. He is already on oral iron replacement. Patient will follow-up in a week with Ortho. He is planning to stay in a motel or hotel in town until his ortho follow-up. He is given prescription for walker. He is also advised to have labs rechecked in a couple of weeks with PCP. Status at Discharge Cognitive/behavioral status at discharge: oriented Functional status at discharge: uses cane/walker Time Spent with Patient Greater than 30 minutes Exam Vital Signs (past 8 hours): - 08/03/18 01:12 08/03/18 04:59 08/03/18 08:00 Temperature 97.7 F 98.5 F 97.9 F Pulse Rate 75 75 74 Respiratory Rate 18 18 16 Blood Pressure 139/72 145/73 H 161/76 H Pulse Oximetry 98 98 99 08/03/18 08:23 Temperature Pulse Rate 74 Respiratory Rate Blood Pressure 161/76 H Pulse Oximetry Oxygen Delivery Method Room Air Oxygen Flow Rate 0 Objective Labs Result Diagrams: 08/03/18 06:55 08/03/18 06:55 Labs: Laboratory Results - last 24 hr 08/02/18 08/02/18 08/02/18 12:08 12:08 12:50 WBC 8.8 RBC 3.38 L Hgb 11.4 L Hct 34.4 L MCV 101.6 H MCH 33.8 MCHC 33.2 RDW 12.4 Plt Count 151 Neut % (Auto) 79.2 H Lymph % (Auto) 15.6 L [place] % (Auto) 4.2 Eos % (Auto) 0.6 L Baso % (Auto) 0.4 Neut # (Auto) 7000 Lymph # (Auto) 1400 [place] # (Auto) 400 Eos # (Auto) 100 Baso # (Auto) 0 PT 12.1 INR 1.0 Sodium 138 Potassium 6.2 H Chloride 107 Carbon Dioxide 22 BUN 27 H Creatinine 1.80 H Estimated GFR 39.8 L BUN/Creatinine Ratio 15.0 Glucose 171 H Calcium 9.0 08/03/18 08/03/18 06:55 06:55 WBC 6.8 RBC 2.74 L Hgb 9.6 L Hct 27.7 L MCV 101.0 H MCH 35.1 H MCHC 34.8 RDW 12.2 Plt Count 123 L Neut % (Auto) Lymph % (Auto) [place] % (Auto) Eos % (Auto) Baso % (Auto) Neut # (Auto) Lymph # (Auto) [place] # (Auto) Eos # (Auto) Baso # (Auto) PT INR Sodium 136 L Potassium 5.8 H Chloride 103 Carbon Dioxide 22 BUN 30 H Creatinine 1.80 H Estimated GFR 39.8 L BUN/Creatinine Ratio 16.7 Glucose 246 H Calcium 8.8 Discharge Plan Discharge Plan Patient Disposition: Home Discharge Med Rec/Prescriptions Prescriptions: New acetaminophen [Acetaminophen Extra Strength] 500 mg tablet See Rx Instructions .ROUTE .COMPLEX PRN (Reason: pain) Qty: 60 RF: 0 telmisartan 20 mg tablet 20 mg PO .hs Qty: 14 RF: 0 Continued metoprolol succinate 50 mg tablet extended release 24 hr 50 mg PO BID Qty: 30 RF: 0 levothyroxine 88 mcg tablet 88 mcg PO QPM Qty: 30 RF: 0 ferrous sulfate 325 mg (65 mg iron) tablet 325 mg PO QPM Qty: 30 RF: 0 Changed insulin glargine 100 unit/mL (3 mL) insulin pen 26 unit subcut QPM Qty: 6 RF: 0 Discontinued telmisartan 40 mg tablet 40 mg PO QPM RF: 0 Follow up/Referrals: Hollis Chappell MD [Physician] - (Follow up in 1-2 weeks with our office. ) Provider Discharge Instructions Diet: Diet as Tolerated Activity: Touchdown weight-bearing on the left. Skin/Wound/Dressing Care Report to your healthcare provider any signs of infection, such as:: chills, fever, increased pain, unusual drainage and unusual redness Discharge Data Attending Provider: Jethro Domingo Admit Date/Time: 08/02/18 12:42 Quality VTE Deep Vein Thrombosis/Pulmonary Embolism Present on Admission: No
--- NOTE | 2018-08-03 09:30 | PT.IIE ---
Current Diagnoses Displaced comminuted fracture of shaft of left tibia, initial encounter for closed fracture (08/02/18) Unspecified fracture of lower end of left tibia, initial encounter for closed fracture (08/02/18) Surgery Performed Operation Date: 08/02/18 15:00 Actual Procedures p Intramedullary Nailing Tibia(Left) - Hollis Chappell MD Surgical History (Last Updated 08/02/18 @ 19:26 by Jethro Domingo MD) Hx of inguinal hernia surgery (Acute) Medical History (Last Updated 08/02/18 @ 19:26 by Jethro Domingo MD) Atrial arrhythmia (Acute) Cholecystectomy planned (Acute) Constipation (Acute) Diabetes mellitus (Acute) Hernia (Acute) Hernia, umbilical (Acute) Hypertension (Acute) Hypothyroidism (acquired) (Acute) Normocytic anemia (Acute) Physical Therapy Inpatient Evaluation/Re-Eval M1 PT/OT-IP Prior Functional Status Start: 08/03/18 10:51 Freq: NEEDED Status: Active Protocol: Document 08/03/18 09:30 [facility] (Rec: 08/03/18 11:01 [facility] [id number]) Medical Review Prior Functional Status Medical History Reviewed Yes Mobility and Gait indep community ambulator Activities of Daily Living and IADL's indep I/ADLs Social History Household Members none Living Arrangements House Number of Floors (Floors) One Floor Home Environment Standard Height Toilet Additional Social History Comment Pt plans to stay at the [facility] until his follow up appointments. Pt with fall resulting in closed distal L tib/fib fx, underwent ORIF on 08/02/18. Orders for TDWB on the LLE. M2 PT-IP Current Condition Start: 08/03/18 10:51 Freq: NEEDED Status: Active Protocol: Document 08/03/18 09:30 [facility] (Rec: 08/03/18 11:01 [facility] [id number]) Physical Therapy Current Condition Current Condition Evaluation Date 08/03/18 Treatment Diagnosis L tib/fib fx s/p ORIF 08/02/18, impaired gait Weight Bearing Status Weight Bearing Status Touch Down Weight Bearing M3 PT-IP Subjective Start: 08/03/18 10:51 Freq: NEEDED Status: Active Protocol: Document 08/03/18 09:30 [facility] (Rec: 08/03/18 11:01 [facility] [id number]) Subjective Physical Therapy Visit Type Type Initial Evaluation Visit Start Time 09:30 Visit Stop Time 09:55 Total Visit Minutes 25 Number of LEATHER PATCHER Visits 0 Physical Therapy Visit Comments Patient Comments pt states that he will stay at the [facility] until he is comfortable going home M4 PT-IP Mobility and Gait Start: 08/03/18 10:51 Freq: NEEDED Status: Active Protocol: Document 08/03/18 09:30 [facility] (Rec: 08/03/18 11:01 [facility] [id number]) PT-Bed Mobility Assessment Rolling Level of Assist Independent Supine to Sit Supine to Sit Independent Sit to Supine Sit to Supine Independent Scooting Scooting to Edge of Bed Independent PT-Transfer Assessment Sit to and From Stand Sit to and from Stand Contact Guard Assistance Use of Upper Extremities Equipment Transfer Assistive Device Gait Belt Front Wheeled Walker Transfers Transfer Destination Bed Transfer Technique Stand Step Pivot Transfer Ability Level of Assist Standby Assistance Gait Assessment Gait Gait Assistance Required: Standby Assistance Distance (Feet) 15 Able to Maintain Weight Bearing Status Yes During Gait Assistive Devices Assistive Device Gait Belt Front Wheeled Walker Factors Limiting Gait Function Factors Limiting Gait Function Decreased Activity Tolerance PT-Balance Assessment Sitting Balance and Reactions Static Sitting Balance Ability Good Dynamic Sitting Balance Ability Good Standing Balance and Reactions Static Standing Balance Ability Fair Dynamic Standing Balance Ability Fair Device Used FWW M5 PT-IP Objective Assessments Start: 08/03/18 10:51 Freq: NEEDED Status: Active Protocol: Document 08/03/18 09:30 [facility] (Rec: 08/03/18 11:01 [facility] [id number]) Orientation Orientation/Cognition Level of Alertness Alert Orientation Name Age Birthday Month Date Year Day of Week Place Situation Gross Range of Motion Lower Extremity ROM Assessment Left Impaired Impairments d/t splint s/p surgery Strength Comments Strength Comments RLE strength WNL, able to perform SLR on the L but no MMT performed d/t surgery Sensation Assessment Comments Sensation Comments pt reports mild numbness still in toes on the L M6 PT-IP Treatment Start: 08/03/18 10:51 Freq: NEEDED Status: Active Protocol: Document 08/03/18 09:30 [facility] (Rec: 08/03/18 11:01 [facility] [id number]) Physical Therapy Treatment Education Education Provided Precautions Weight Bearing Status Safety Other Treatments Other Treatment Performed given handout for [facility] stores to obtain w/c if needed M7 PT-IP Assessment and Plan Start: 08/03/18 10:51 Freq: NEEDED Status: Active Protocol: Document 08/03/18 09:30 [facility] (Rec: 08/03/18 11:01 [facility] [id number]) PT Summary Assessment and Plan Potential Rehabilitation Potential Good Status of Condition at Evaluation Stable Summary Impairments Pain ROM Balance Transfers Gait Activity Tolerance Progress Towards Goals Safe For Discharge Assessment Summary Pt able to maintain WB status of TDWB throughout mobility and used a NWB method for gait forward and backward and with turning. Pt was fitted for a FWW with orders written for FWW for home use. Pt will require assistance likely from friend to assist with getting settled into the [facility] , but overall appears safe from a mobility status to d/c when medically stable. Goals Bed Mobility Goal Independent Transfer Goal Independent Gait Goal Independent Gait Distance 50 Days to Meet Goals 2 Frequency of Treatment Frequency Of Treatment Twice a Day Treatment Plan Physical Therapy Treatment Plan Transfer Training Gait Training Therapeutic Exercise Post Op Education Discharge Planning Hot or Cold Pack Neuromuscular Re-ed Other Recommendations and Next Treatment progress gait as tolerated, Focus transfers Recommendations To Nursing Amount of Assist Needed 1 Person Assist Discharge Recommendations PT Discharge Recommendations Home
--- NOTE | 2018-08-03 11:37 | CM.DANOTE ---
DCP: Case received, EMR reviewed and met with patient. Introduced self and role. Was able to retrieve information from patient regarding any needs, and baseline before fall. DCP template completed with information currently available. Patient is a 52 year old male who admitted yesterday afternoon to the care of the hospitalist team. Payer: confirmed: [facility]/Medicaid. Patient came to hospital via ambulance secondary to a fall in the gravel while walking his dog. He lives on [place]. He sustained fracture of left ankle. He is single, lives alone, but had a friend named Kandy that also lives on [place]. She will be here at approximately 1500 to see patient. Patient is being discharged today. For now, he will be staying at the [facility], as he stated, I can't go back to [place] with this fracture, and have better support in this area. His friend, Kandy, will picket labor union his medications at [employer]. This pillowcase cleaner ordered patient a walker, per Dr. Berkowitz. Gave order to Devon Kimbrough Also, called [employer] [facility], for patient stated, it's too hard to get in and out of a taxi. He is prepared to pay for transport. He stated, money is not an issue, for I inherited some money. He understands that transport can be approximately $60.00. They will be here at approximately 1400 to pick him up. He is aware. P: Patient is to be discharged today, and [employer] will pick him up. He will be going to [place]. Malka Macdonald RN/Jewel Bearing Driller
[2018-08-03 12:00] VITALS: BP 165/77
== END 2018-08-03 13:20 | disposition home or self-care (01) | DRG 313 ==
LOC: ED 12:37 → AC 12:42
PROVIDERS: Orthopaedic Surgery; Admitting Provider Family Medicine; Emergency Provider Emergency Medicine; Visit Provider Family Medicine
PROC: 0QSH06Z Reposition Left Tibia with Intramedullary Internal Fixation Device, Open Approach (ICD-10-PCS; CPT 27759; principal; 2018-08-02 15:00)
DX: S82.302A Unspecified fracture of lower end of left tibia, initial encounter for closed fracture (principal); S82.452A Displaced comminuted fracture of shaft of left fibula, initial encounter for closed fracture; N18.3 Chronic kidney disease, stage 3 (moderate); E87.5 Hyperkalemia; D62 Acute posthemorrhagic anemia; E13.9 Other specified diabetes mellitus without complications; Z79.4 Long term (current) use of insulin; I10 Essential (primary) hypertension; D64.9 Anemia, unspecified; E03.9 Hypothyroidism, unspecified; W01.0XXA Fall on same level from slipping, tripping and stumbling without subsequent striking against object, initial encounter; Y92.014 Private driveway to single-family (private) house as the place of occurrence of the external cause
CPT/HCPCS: 36415; 73590; 73600; 73700; 76000; 80048; 82962; 85025; 85027; 85610; 93005; 93010; 96374; 97161; 99282; 99284; J1100; J1650; J2250; J2270; J2405; J2704; J2795; J3010

== ENCOUNTER 2018-08-05 08:00 | Observation (INO) | payer OTHER, MEDICAID, SELFPAY ==
[2018-08-02 13:47] VITALS: BMI 30.8
[2018-08-05] VITALS (8 sets, daily range): BP systolic 143–174; BP diastolic 64–94; PULSE 64–88; RESP 15–18; TEMP 36.2–37.2; O2SAT 96–100; BMI 29.2
--- NOTE | 2018-08-05 08:08 | ED_ITS ---
HPI - Fall General Chief Complaint: Fall Stated Complaint: Multiple falls Time Seen by Provider: 08/05/18 08:05 Source: patient and family Mode of arrival: wheelchair Limitations: no limitations History of Present Illness HPI Narrative: 52M nonsmoker, diabetic with recent orthopedic surgery returns to the emergency department for evaluation. He was seen and evaluated on Sunday after mechanical fall resulted in a closed, complex tibia fibula fracture which resulted in a surgery. He was discharged the following day but stayed locally. Over the weekend he had a very difficult time getting around and caring for himself, suffering multiple falls but no injury. He is concerned that he will not cut it at home and after talking with the orthopedist came to the emergency department for help with taking care of himself. He denies any fever chills, he has no nausea or vomiting. He denies any numbness or tingling of his toes MD complaint: fall Onset (ago): hour(s) Fall from: standing Fall witnessed: yes, by family Place fall occurred: home Loss of consciousness: none Symptoms prior to fall: none Context: tripped/slipped Related Data Previous Rx's Medication Instructions Recorded acetaminophen [Acetaminophen Extra See Rx Instructions .ROUTE 08/03/18 Strength] .COMPLEX PRN #60 tab ferrous sulfate 325 mg PO QPM #30 tab 08/03/18 insulin glargine 26 unit SUBCUT QPM #6 ml 08/03/18 levothyroxine 88 mcg PO QPM #30 tab 08/03/18 metoprolol succinate 50 mg PO BID #30 tab 08/03/18 telmisartan 20 mg PO .hs #14 tab 08/03/18 Allergies Allergy/AdvReac Type Severity Reaction Status Date / Time atenolol Allergy Severe Chest Pain Verified 08/05/18 08:06 duloxetine [From Cymbalta] Allergy Severe Difficulty Verified 08/05/18 08:06 Breathing hydrocodone [From Vicodin] Allergy Severe afib, Verified 08/05/18 08:06 chest pain oxycodone [From Percocet] Allergy Severe afib Verified 08/05/18 08:06 pregabalin [From Lyrica] Allergy Severe Difficulty Verified 08/05/18 08:06 Breathing Penicillins Allergy Intermediate sob, hives Verified 08/05/18 08:06 Sulfa (Sulfonamide Allergy Intermediate Difficulty Verified 08/05/18 08:06 Antibiotics) Breathing acetaminophen [From Vicodin] Allergy caution Verified 08/05/18 08:06 with liver issues liraglutide [From Victoza] AdvReac Severe Palpitation Verified 08/05/18 08:06 s lisinopril AdvReac Cough Verified 08/05/18 08:06 Review of Systems Constitutional Denies chills, Denies fever(s), Denies lethargy and Denies weakness Eyes Denies change in vision, Denies eye discharge, Denies irritation and Denies loss of vision ENT Ears, Nose, Mouth, and Throat: Denies change in voice, Denies neck pain and Denies sore throat Cardiovascular Denies chest pain, Denies irregular heart rhythm, Denies lightheadedness, Denies palpitations, Denies dyspnea, Denies dyspnea on exertion and Denies orthopnea Respiratory Denies cough, Denies dyspnea, Denies dyspnea on exertion and Denies wheezing Gastrointestinal Gastrointestinal: Denies abdominal pain, Denies change in bowel habits, Denies d iarrhea, Denies nausea and Denies vomiting Genitourinary Denies hematuria, Denies flank pain, Denies urinary incontinence and Denies urinary urgency Musculoskeletal Denies neck pain Integumentary/Breasts Denies pruritus, Denies erythema, Denies rash and Denies wounds Neurologic Denies confusion, Denies loss of vision and Denies weakness Psychiatric Denies anxiety, Denies confusion, Denies depression, Denies homicidal ideation and Denies suicidal ideation Endocrine Denies palpitations Hematologic/Lymphatic Denies easy bruising Allergic/Immunologic Denies wheezing Exam Narrative Exam Narrative: GENERAL: 52M resting comfortably, AOx3, GCS 15 HEAD: Atraumatic. Normocephalic. No temporal or scalp tenderness. EYES: Pupils equal round and reactive. Extraocular motions intact. No scleral icterus. No injection or drainage. ENT: Nose without bleeding, purulent drainage or septal hematoma. Throat without erythema, tonsillar hypertrophy or exudate. Uvula midline. Airway patent. NECK: Trachea midline. No JVD or lymphadenopathy. Supple, nontender, no meningeal signs. CARDIOVASCULAR: Regular rate and rhythm without murmurs, gallops, or rubs. RESPIRATORY: Clear to auscultation. Breath sounds equal bilaterally. No wheezes, rales, or rhonchi. GASTROINTESTINAL: Abdomen soft, non-tender, nondistended. No hepato- splenomegaly, or palpable masses. No guarding. EXTREMITIES: LLE in splint. Cap refil <2s, sensation in tact BACK: Nontender without deformity or crepitance. No flank tenderness. NEURO: AOx3. SKIN: No rash or erythema. Initial Vital Signs Initial Vital Signs: Vital Signs Temperature 97.2 F L 08/05/18 08:06 Pulse Rate 81 08/05/18 08:06 Respiratory Rate 15 08/05/18 08:06 Blood Pressure 174/71 H 08/05/18 08:06 Pulse Oximetry 100 08/05/18 08:06 [facility] Medical History Atrial arrhythmia (Acute) Cholecystectomy planned (Acute) Constipation (Acute) Diabetes mellitus (Acute) Hernia (Acute) Hernia, umbilical (Acute) Hypertension (Acute) Hypothyroidism (acquired) (Acute) Normocytic anemia (Acute) Surgical History Hx of inguinal hernia surgery (Acute) Family History (Updated 08/02/18 @ 19:36 by Jethro Domingo MD) Mother Cancer Father Old age Other Diabetes mellitus Social History household members: none Smoking Status: Never smoker alcohol intake: current Family History Mother Cancer Father Old age Other Diabetes mellitus Social History household members: none Smoking Status: Never smoker alcohol intake: current Course Orders Ordered: ED Orders 08/05/18 08:30 Basic Metabolic Panel Stat Complete Blood Count AUTO DIFF Stat 08/05/18 08:55 Venous Blood Gas Stat Sodium Chloride (Normal Saline 0.9%) 1,000 mls @ 1,000 mls/hr IV BOLUS ONE Stop: 08/05/18 09:25 Reevaluation(s) Reevaluation #1: ortho and care management have spoken. Patient will come back into hospital to stabilize condition and ensure a safe disposition Vital Signs - 8 hr 08/05/18 08:06 Temperature 97.2 F L Pulse Rate 81 Respiratory Rate 15 Blood Pressure 174/71 H Pulse Oximetry 100 MDM - Fall Lab Data Result diagrams: 08/05/18 08:30 08/05/18 08:30 Lab Results 08/05/18 08/05/18 Range/Units 08:30 08:30 WBC 6.1 (4.5-11.0) X10^3/uL RBC 2.45 L (4.5-5.9) X10^6/uL Hgb 8.7 L (13.5-17.5) g/dL Hct 24.7 L (41-53) % MCV 100.8 H (80-100) fL MCH 35.4 H (26-34) PG MCHC 35.1 (30-36) % RDW 12.2 (11.6-14.8) % Plt Count 128 L (150-400) X10^3/uL Neut % (Auto) 78.0 H (50-75) % Lymph % (Auto) 14.9 L (25-40) % [place] % (Auto) 6.4 (3-14) % Eos % (Auto) 0.5 L (2-4) % Baso % (Auto) 0.2 (0-2) % Neut # (Auto) 4700 (9538-5123) /uL Lymph # (Auto) 900 L (4029-6728) /uL [place] # (Auto) 400 (0-900) /uL Eos # (Auto) 0 (0-450) /uL Baso # (Auto) 0 (0-100) /uL Sodium 137 (137-145) mmol/L Potassium 5.3 H (3.4-5.1) mmol/L Chloride 102 (98-107) mmol/L Carbon Dioxide 24 (22-32) mmol/L BUN 32 H (9-20) mg/dL Creatinine 1.80 H (0.66-1.25) mg/dL Estimated GFR 39.8 L (>60) mL/min BUN/Creatinine Ratio 17.8 (6-22) Glucose 298 H (70-100) mg/dL Calcium 8.9 (8.4-10.2) mg/dL Point of Care Testing Glucose POC 332 [facility] Narrative Medical decision making narrative: 52-year-old male with little outside support returns after a recent orthopedic surgery. He has had multiple falls and is unable to care for himself at home. He will require hospitalization for stabilization and proper disposition Discharge Plan Departure Patient Disposition: Admitted as Observation Clinical Impression: Adult failure to thrive Closed tibial fracture Qualifiers: Encounter type: subsequent encounter Tibia location: distal Fracture morphology: other fracture Laterality: left Fracture healing: with routine he otoniel Qualified Code(s): S82.392D - Other fracture of lower end of left tibia, subsequent encounter for closed fracture with routine healing
[2018-08-05 08:43] LABS: Basophils Absolute Auto 0 /uL (0-100); Eosinophils Absolute Auto 0 /uL (0-450); Eosinophils Percent Auto 0.5 % (2-4); Hemoglobin 8.7 g/dL (13.5-17.5); Lymphocytes Absolute Auto 900 /uL (1100-4500); Monocytes Absolute Auto 400 /uL (0-900)
[2018-08-05 08:47] LABS: Add Manual Diff / Slide Review NO; Basophils Percent Auto 0.2 % (0-2); Hematocrit 24.7 % (41-53); Lymphocytes Percent Auto 14.9 % (25-40); Mean Corpuscular HGB Conc 35.1 % (30-36); Mean Corpuscular Hemoglobin 35.4 PG (26-34); Mean Corpuscular Volume 100.8 fL (80-100); Monocytes Percent Auto 6.4 % (3-14); Neutrophils Absolute Auto 4700 /uL (1500-7000); Platelet Count 128 X10^3/uL (150-400); Red Blood Cell Count 2.45 X10^6/uL (4.5-5.9); Red Cell Distribution Width 12.2 % (11.6-14.8); White Blood Cell Count 6.1 X10^3/uL (4.5-11.0)
[2018-08-05 08:56] LABS: BUN Creatinine Ratio 17.8 (6-22); Blood Urea Nitrogen 32 mg/dL (9-20); Calcium 8.9 mg/dL (8.4-10.2); Carbon Dioxide 24 mmol/L (22-32); Chloride 102 mmol/L (98-107); Estimated Glomerular Filt Rate 39.8 mL/min (>60); Glucose 298 mg/dL (70-100); HEMOLYSIS 18 (0-50); Potassium 5.3 mmol/L (3.4-5.1); Sodium 137 mmol/L (137-145)
[2018-08-05] MEDS: SODIUM CHLORIDE 0.9% 1,000 ML 1000 ML IV (09:35)
--- NOTE | 2018-08-05 09:41 | PC.NURSE ---
Patient fell Sunday on [place]; Patient sustained a tib/fib fracture; Surgery on Sunday and discharged on Sunday; Presented to Emergency Department today - he is unable to take care of himself, he needs Rehab; Left left with immobilize - pedal pulse strong with brisk cap-refill;
--- NOTE | 2018-08-05 09:45 | PC.NURSE ---
Patient states - I have been able to check my blood sugar since hospital discharge so I have not been taking my whole doses of insulin;
[2018-08-05 10:55] LABS: HCO3 VBG 26 mmol/L (23-28); Oxygen Saturation VBG 38 % (70-75); PCO2 VBG 46.1 mmHg (45-50); PO2 VBG 24 mmHg (35-45); Total CO2 VBG 27 mmol/L (24-29); pH VBG 7.35 (7.33-7.43)
[2018-08-05] MEDS: SODIUM CHLORIDE 0.9% 1,000 ML 125 ML IV ×2 (11:44→19:41)
[2018-08-05] MEDS: METOPROLOL ER 50 MG TABLET PO ×2 (11:49→23:35)
[2018-08-05] MEDS: INSULIN ASPART 100 UNIT/ML INSULN PEN SUBCUT ×2 (11:49→16:52)
--- NOTE | 2018-08-05 16:01 | CM.DANOTE ---
Discharge Planning/Care Management DCP: assessment: case received this morning when pt was in the ER. Dr. Chappell called the CM dept and noted that pt had admitted 08/02 in the [facility] after a fall with a fracture and surgical repair. He was d/c'd on Thursday 08/03 to the [facility] and has been falling and doing poorly since then. Dr. Chappell said he would admit pt and that a plan for facility placement or similar was needed. Have met now with pt and discussed some ideas with him. He does confirm he now has access to funds to pay for care and he is very open to options. Due to lateness of hour will meet again with pt tomorrow and follow to help him set up a plan. Will make sure that PT and OT see him. P: d/c to appropriate setting once this is identified and he is accepted. Advanced directive, confirm from FAMILY Start: 08/05/18 12:56 Freq: Q24H Status: Active Protocol: Document 08/05/18 12:56 YAD (Rec: 08/05/18 12:57 YAD [id number]) Advance Directive, confirm on record Time 12:57 Person contacted Pt Copy received No CM Discharge Assessment Start: 08/05/18 15:59 Freq: Status: Active Protocol: Document 08/05/18 15:59 ITV (Rec: 08/05/18 16:01 ITV [id number]) Discharge Planning Assessment Advance Directives? Yes Advance Directives on File No History Provided By Patient Medical Record Prior Living Arrangements House Household Members none Comment pt does say he has a strong support in the [place] area Is patient alert and oriented? Yes Transportation Arrangement [employer] [facility] Whiteboard Updated in Patient Room with Yes name and ext. 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
--- NOTE | 2018-08-05 16:39 | P.PN_ITS ---
Subjective Date Patient Seen: 08/05/18 Time Patient Seen: 16:39 Interval history: POD #3 s/p ORIF distal tibia and fibula fracture with Dr. Chappell. Not requiring any pain medication. He has been touchdown weight- bearing on the left. He was discharged on Sunday but stayed locally at the [facility]. Over the weekend, he had a very difficult time getting around and caring for himself. He suffered multiple falls but no injury. He is concerned that he will not cut it at home. He states he has Klinefelter syndrome that is the cause of most of his upper extremity weakness that is giving him difficulty using his walker. He denies any fever chills, he has no nausea or vomiting. He denies any numbness or tingling of his toes. He is diabetic and blood sugar has been well controlled. He has stage 3 chronic kidney disease. Exam Vital Signs (past 8 hours): - 08/05/18 09:00 08/05/18 09:30 08/05/18 10:54 Temperature 97.4 F L Pulse Rate 88 64 77 Respiratory Rate 16 18 Blood Pressure 154/64 H Blood Pressure [Left Arm] 167/84 H 164/74 H Pulse Oximetry 100 98 08/05/18 10:55 08/05/18 15:41 Temperature 98.3 F 98.1 F Pulse Rate 78 83 Respiratory Rate 16 18 Blood Pressure 153/82 H 156/94 H Blood Pressure [Left Arm] Pulse Oximetry 100 96 Oxygen Delivery Method Room Air Oxygen Flow Rate 0 Narrative Exam Narrative: Patient is sitting at bedside chair no acute distress. He is alert and oriented x3. Splint on left leg is well-fitting. He has full sens ation in his toes. Brisk capillary refill throughout his toes. He is able to actively wiggle his toes. Objective Labs Result Diagrams: 08/05/18 08:30 08/05/18 08:30 Labs: Laboratory Results - last 24 hr 08/05/18 08/05/18 08/05/18 08:30 08:30 08:50 WBC 6.1 RBC 2.45 L Hgb 8.7 L Hct 24.7 L MCV 100.8 H MCH 35.4 H MCHC 35.1 RDW 12.2 Plt Count 128 L Neut % (Auto) 78.0 H Lymph % (Auto) 14.9 L [place] % (Auto) 6.4 Eos % (Auto) 0.5 L Baso % (Auto) 0.2 Neut # (Auto) 4700 Lymph # (Auto) 900 L [place] # (Auto) 400 Eos # (Auto) 0 Baso # (Auto) 0 VBG pH 7.35 VBG pCO2 46.1 VBG pO2 24 L VBG HCO3 26 VBG Total CO2 27 VBG O2 Saturation 38 L VBG Base Excess 0.0 Sodium 137 Potassium 5.3 H Chloride 102 Carbon Dioxide 24 BUN 32 H Creatinine 1.80 H Estimated GFR 39.8 L BUN/Creatinine Ratio 17.8 Glucose 298 H Calcium 8.9 Assessment & Plan Post-op (1) Closed tibial fracture: Assessment and Plan narrative: Patient will need continued physical thera py. He will continue to be touchdown weight-bearing. He has been slow to mobilize with great difficulty ambulating. He has been unstable and concerned about his safety at home. He would benefit from group home facility following his recovery after surgery. (2) Chronic kidney disease: (3) Diabetes:
[2018-08-05] MEDS: LEVOTHYROXINE 88 MCG TABLET PO (23:35)
[2018-08-05] MEDS: TELMISARTAN 20 MG TABLET PO (23:35)
[2018-08-05] MEDS: INSULIN GLARGINE 100 UNIT/ML 3ML PEN 26 UNIT SUBCUT (23:36)
[2018-08-06] VITALS (9 sets, daily range): BP systolic 128–144; BP diastolic 64–80; PULSE 77–100; RESP 18; TEMP 36–37.2; O2SAT 98–100
[2018-08-06] MEDS: SODIUM CHLORIDE 0.9% 1,000 ML 125 ML IV ×2 (03:45→11:38)
--- NOTE | 2018-08-06 07:32 | P.PN_ITS ---
Subjective Date Patient Seen: 08/06/18 Time Patient Seen: 07:30 Interval history: Fairly comfortable today with pain control. However still difficulty with ambulation. Feels unsteady and wobbly even with a walker. He is working on staying with a friend and a flat 1 level house. Exam Vital Signs (past 8 hours): - 08/05/18 23:35 08/06/18 00:40 08/06/18 03:53 Temperature 98.9 F 98.3 F Pulse Rate 81 80 78 Respiratory Rate 18 18 Blood Pressure 147/77 H 143/75 H 138/64 Pulse Oximetry 98 98 Oxygen Delivery Method Room Air Oxygen Flow Rate 0 Const Orientation: alert and oriented x3 Extrem Other: Dressing CDI. Easily wiggles toes. Decreased but intact sensation throughout the foot. Good capillary refill. Objective Labs Result Diagrams: 08/05/18 08:30 08/05/18 08:30 Labs: Laboratory Results - last 24 hr 08/05/18 08/05/18 08/05/18 08:30 08:30 08:50 WBC 6.1 RBC 2.45 L Hgb 8.7 L Hct 24.7 L MCV 100.8 H MCH 35.4 H MCHC 35.1 RDW 12.2 Plt Count 128 L Neut % (Auto) 78.0 H Lymph % (Auto) 14.9 L [place] % (Auto) 6.4 Eos % (Auto) 0.5 L Baso % (Auto) 0.2 Neut # (Auto) 4700 Lymph # (Auto) 900 L [place] # (Auto) 400 Eos # (Auto) 0 Baso # (Auto) 0 VBG pH 7.35 VBG pCO2 46.1 VBG pO2 24 L VBG HCO3 26 VBG Total CO2 27 VBG O2 Saturation 38 L VBG Base Excess 0.0 Sodium 137 Potassium 5.3 H Chloride 102 Carbon Dioxide 24 BUN 32 H Creatinine 1.80 H Estimated GFR 39.8 L BUN/Creatinine Ratio 17.8 Glucose 298 H Calcium 8.9 Assessment & Plan Post-op Postoperative IM nail left tibia Postoperative day: 4 Postoperative status narrative: He was readmitted as he did not have the upper body strength and stability to manage on his own with a walker. We are going to continue with physical therapy today. most likely discharge to his friend's house tomorrow if he is safe. Postoperative plan: routine post-op care
[2018-08-06] MEDS: METOPROLOL ER 50 MG TABLET PO ×2 (08:28→22:02)
[2018-08-06] MEDS: INSULIN ASPART 100 UNIT/ML INSULN PEN SUBCUT ×3 (08:30→17:24)
--- NOTE | 2018-08-06 10:37 | PC.NURSE ---
Pt is a&ox3. He is up with 1pa and walker. He is not putting any weight on his left lower extremity as he is touch toe weight bearing. Pt has a splint in place with an guanaco wrap. This is cdi and in place. Pt denies any pain or discomfort at this time. Pleasant and cooperative with care. Sitting up in chair and resting. Pt just had a bowel movement and is working with pt at this time.
--- NOTE | 2018-08-06 12:28 | PT.IIE ---
Current Diagnoses Type 2 diabetes mellitus without complications (08/05/18) Chronic kidney disease, unspecified (08/05/18) Other fracture of lower end of left tibia, subsequent encounter for closed fracture with routine healing (08/05/18) Surgical History (Last Reviewed 08/05/18 @ 09:04 by Wong Rosario DO) Hx of inguinal hernia surgery (Acute) Medical History (Last Reviewed 08/05/18 @ 09:04 by Wong Rosario DO) Atrial arrhythmia (Acute) Cholecystectomy planned (Acute) Constipation (Acute) Diabetes mellitus (Acute) Hernia (Acute) Hernia, umbilical (Acute) Hypertension (Acute) Hypothyroidism (acquired) (Acute) Normocytic anemia (Acute) Physical Therapy Inpatient Evaluation/Re-Eval M1 PT/OT-IP Prior Functional Status Start: 08/06/18 11:54 Freq: NEEDED Status: Active Protocol: Document 08/06/18 10:45 HH (Rec: 08/06/18 12:28 HH [email or web address]) Medical Review Prior Functional Status Medical History Reviewed Yes Communication No deficits noted. Able to make needs known Mobility and Gait Pt is currently TDWB since sx from last sunday. currently using a FWW to hop with step to pattern for mobility. He has difficulty time ambulating with FWW due to chronic back pain and B UE weakness. He fell twice during weekend by tripping over the door at home . No significant injuries noted. Activities of Daily Living and IADL's pt unable to take care of himself at this point due to his WB status and low activity endurance. Social History Household Members friend(s) none Living Arrangements House Number of Floors (Floors) One Floor Number of Stairs To Enter/Railing? 1 [facility] Home Environment Standard Height Toilet Home Equipment Front Wheel Walker Raised Toilet Seat w/Armrests Shower Seat with Backrest Team Facilitator Bed Rails Grab Bars Near Toilet Grab Bars In Shower Additional Social History Comment Pt lived in [facility] since d/c from last Sunday. But he fell twice in the hotel while amb with FWW. Pt readmitted to 08/05 since he was unable to take of himself . He decided to live with his friend in [facility] in a 1 story home on 08/08 as long as needed. He will live in a master room and will have another 2 friends who are former nurses to assist him couple hours a day as needed. Pt also ordered urinal, leg elevated pillow, leak detection engineer, toilet and shower grab bar, raised toilet seat with armrests, bed rails. He is also considering to order scooter for mobility. M2 PT-IP Current Condition Start: 08/06/18 11:54 Freq: NEEDED Status: Active Protocol: Document 08/06/18 10:45 HH (Rec: 08/06/18 12:28 [email or web address]) Physical Therapy Current Condition Current Condition Evaluation Date 08/06/18 Treatment Diagnosis multiple falls s/p L fibular fx, impaired gait and activity tolerance Onset Date 08/05/18 Weight Bearing Status Weight Bearing Status Touch Down Weight Bearing M3 PT-IP Subjective Start: 08/06/18 11:54 Freq: NEEDED Status: Active Protocol: Document 08/06/18 10:45 HH (Rec: 08/06/18 12:28 [email or web address]) Subjective Physical Therapy Visit Type Type Initial Evaluation Visit Start Time 10:45 Visit Stop Time 11:05 Total Visit Minutes [address] Notes [address] in [address] with an guanaco wrap Number of LIGHTING DESIGNER Visits 0 Physical Therapy Visit Comments Patient Comments I will be d/c to my friend's home as long as needed. I feel safe to live there. Patient Goals To be d/c to his friend's home for recovery. Therapy Pain Assessment Pain Present Pain Present Denied Pain M4 PT-IP Mobility and Gait Start: 08/06/18 11:54 Freq: NEEDED Status: Active Protocol: Document 08/06/18 10:45 HH (Rec: 08/06/18 12:28 [email or web address]) PT-Bed Mobility Assessment Supine to Sit Supine to Sit Independent Sit to Supine Sit to Supine Independent Scooting Scooting to Edge of Bed Independent Scooting Up and Down in Bed Independent PT-Transfer Assessment Sit to and From Stand Sit to and from Stand Contact Guard Assistance Use of Upper Extremities Equipment Transfer Assistive Device Gait Belt Front Wheeled Walker Orthotic/Prosthetic Devices or Brace: Yes Transfers Transfer Destination Bed Chair Transfer Technique Stand Step Pivot Transfer Ability Level of Assist Contact Guard Assistance Use of Upper Extremities Comments Mobility Comments Pt just got out of toilet upon assessment. Pt required CGA for all transfers due to his height and limited UE strength and TDWB on LLE. Pt has difficult time for sit to stand from low chair and toilet which is his primary safety concern. Pt was able to hop while turns and safely transfer himself back to different surface with proper hand and feet placement. Gait Assessment Gait Gait Assistance Required: Contact Guard Assist Distance (Feet) 15 Able to Maintain Weight Bearing Status Yes During Gait Assistive Devices Assistive Device Gait Belt Front Wheeled Walker Orthotic/Prosthetic Devices or Brace: Yes Gait Deviations General Gait Pattern Antalgic Decreased Stride Length Decreased Feet Clearance Step-to Gait Factors Limiting Gait Function Factors Limiting Gait Function Decreased Activity Tolerance Decreased Strength Limited Range of Motion Pain Poor Balance Comments Gait Comments Pt used step to hopping pattern with FWW. Instructed pt to TDWB for breaks and pt states his toes are able to feel the ground finally. Pt showed limited overall endurance and arm strength as he started c/o fatigue and showed decreased R foot clearance with distance increases. He also c/o with LBP during ambulation. Stair Climbing Assessment Comments Stair Climbing Comments did not attempt PT-Balance Assessment Sitting Balance and Reactions Static Sitting Balance Ability Normal Dynamic Sitting Balance Ability Normal Standing Balance and Reactions Static Standing Balance Ability Good Dynamic Standing Balance Ability Good Device Used FWW M5 PT-IP Objective Assessments Start: 08/06/18 11:54 Freq: NEEDED Status: Active Protocol: Document 08/06/18 10:45 (Rec: 08/06/18 12:28 [email or web address]) Orientation Orientation/Cognition Level of Alertness Alert Orientation Name Age Birthday Month Date Year Day of Week Place Situation Language Function Ability No Deficits Noted Safety Awareness Understands Safety Issues Memory Description No Deficits Noted Gross Range of Motion Upper Extremity ROM Assessment Within Functional Limits Lower Extremity ROM Assessment Left Impaired Impairments a splint in place with an guanaco wrap (from tibial tuberosity to metatarsal) Strength Upper Extremity Strength Assessment Within Functional Limits Lower Extremity Strength Assessment Left Impaired Comments Strength Comments a splint in place with an guanaco wrap (from tibial tuberosity to metatarsal) TDWB Coordination Assessment Gross Coordination Gross Coordination WNL Assessment Finger to Nose Test Normal Performance Pronation/Supination Test Normal Performance Sensation Assessment Sensation Gross Sensation Left LE Impaired Light Touch Impaired Proprioception (Position) Impaired Sensation Description Numbness Comments Sensation Comments decreased sensation to LT and pressure at L toes but able to feel them Muscle Tone Muscle Tone WNL Yes M6 PT-IP Treatment Start: 08/06/18 11:54 Freq: NEEDED Status: Active Protocol: Document 08/06/18 10:45 HH (Rec: 08/06/18 12:28 HH [email or web address]) Physical Therapy Treatment Education Education Provided Precautions Weight Bearing Status Post-Op Packet Safety M7 PT-IP Assessment and Plan Start: 08/06/18 11:54 Freq: NEEDED Status: Active Protocol: Document 08/06/18 10:45 HH (Rec: 08/06/18 12:28 HH [email or web address]) PT Summary Assessment and Plan Potential Rehabilitation Potential Excellent Status of Condition at Evaluation Stable Summary Impairments Pain ROM Strength Balance Bed Mobility Transfers Gait Activity Tolerance Assessment Summary Pt is mod complexity due his s /p L fibular fx, multiple falls, impaired gait and activity tolerance. Pt currently able to perform ADLs with CGA but unsafe overall due to his poor overall UE strength and limited activity tolerance. Pt is very tall and has difficult time for sit to stand especially low chair/ toilet. However, pt plans to d /c to his friend home and will have 2 other friends to assist him medically and physically, along with new ordered DME from online. Recommended pt to acquire Leg Band Singer scooter to improve mobility and safety. Pt will be safe to d/c to friend's home with their assistance once he is medically stable. Goals Bed Mobility Goal Independent Transfer Goal Independent Front Wheeled Walker Gait Goal Independent Front Wheel Walker Gait Distance 150 Other Goals to clear 1 step with AD SBA Days to Meet Goals 5 Frequency of Treatment Frequency Of Treatment Twice a Day Treatment Plan Physical Therapy Treatment Plan Bed Mobility Training Transfer Training Gait Training Therapeutic Exercise Balance Retraining Post Op Education Discharge Planning Hot or Cold Pack Other Recommendations and Next Treatment STS and transfer training as Focus lisa (from toilet and chair) gait traing as lisa Recommendations To Nursing Amount of Assist Needed 1 Person Assist Discharge Recommendations PT Discharge Recommendations Home with Assistance Other Discharge Recommendations pt plans to d/c to his friend home and will have 2 other friends to assist him medically and physically, along with new ordered DME from online. Recommended pt to acquire Leg Band Singer scooter to improve mobility and safety. Pt will be safe to d/c to friend's home with their assistance once he is medically stable. Equipment Needed for Home Before leg lawn specialist scooter Discharge
--- NOTE | 2018-08-06 14:35 | CM.DPC ---
DCP: continued: Contacted [facility] this morning to see if there were options theyc ould present to pt for his consideration while he is recovering. [facility] nurse Britt agreed to see pt at 1300 if this would be helpful to him. Met about noon with pt and a visiting friend. Pt states he has been considering his d/c options since yesterday afternoon and has reached out to serveral friends. I put together a plan that I discussed with Dr. Chappell when I saw him this morning. Pt reports that the ortho office will put a referral in for him to receive followup care in the [place] area. Pt has to let David know he know longer qualifies for the [place] Medicaid and will be setting up a new insurance plan as soon as he gets settled. For now: he will be going to a friends home in [place]: this will be ready by 08/08. he has some friends who are therapists who will be stopping in to get him set up and I am just so much closer to my supportive community. Pt has used a scooter in the past and feels comfortable with this. (a walker is difficult for him as he has limited upper body strength.) He is ordering one from [facility] and hopes for delivery to the hospital tomorrow so that he can utilize this in a hospital therapy session. OT is added to his POC and will see him today. Pt hopes to leave 08/08 by 1100 so as to miss the traffic and has set up [employer] to pick him up at the [facility] at that time. Pt has his car in the area: it is an upper body controlled vehicle but he says Dr. Chappell has recommended he not drive this until his staple are removed. He has set up a friend to pick the car up for him and drive it to [place]. Pt has been extremely proactive with his d/c plan. He says it all went so quickly with his d/c on Sunday that he only realized the extent of his difficulties when he got to the hotel room. P: to [place] home setting as per above: morning of 08/08. r
--- NOTE | 2018-08-06 15:51 | PT.IPTN ---
Current Diagnoses Type 2 diabetes mellitus without complications (08/05/18) Chronic kidney disease, unspecified (08/05/18) Other fracture of lower end of left tibia, subsequent encounter for closed fracture with routine healing (08/05/18) Physical Therapy Treatment Note M2 PT-IP Current Condition Start: 08/06/18 11:54 Freq: NEEDED Status: Active Protocol: Document 08/06/18 10:45 HH (Rec: 08/06/18 12:28 HH [email or web address]) Physical Therapy Current Condition Current Condition Evaluation Date 08/06/18 Treatment Diagnosis multiple falls s/p L fibular fx, impaired gait and activity tolerance Onset Date 08/05/18 Weight Bearing Status Weight Bearing Status Touch Down Weight Bearing M3 PT-IP Subjective Start: 08/06/18 11:54 Freq: NEEDED Status: Active Protocol: Document 08/06/18 15:20 CLB (Rec: 08/06/18 15:51 CLB [id number]) Subjective Physical Therapy Visit Type Type Treatment Note Visit Start Time 15:20 Visit Stop Time 15:35 Notes Pt has ordered leg scooter that will be delivered tomorrow to hospital. Pt plans to d/c hospital . Therapy Pain Assessment Pain Present Pain Present Denied Pain M4 PT-IP Mobility and Gait Start: 08/06/18 11:54 Freq: NEEDED Status: Active Protocol: Document 08/06/18 15:20 CLB (Rec: 08/06/18 15:51 CLB [id number]) PT-Bed Mobility Assessment Supine to Sit Supine to Sit Independent Sit to Supine Sit to Supine Independent Scooting Scooting to Edge of Bed Independent PT-Transfer Assessment Sit to and From Stand Sit to and from Stand Standby Assistance Use of Upper Extremities Equipment Transfer Assistive Device Gait Belt Front Wheeled Walker Orthotic/Prosthetic Devices or Brace: Yes Transfers Transfer Destination Chair Bedside Commode Transfer Ability Level of Assist Contact Guard Assistance Use of Upper Extremities Comments Mobility Comments Pt able to sit on BSC with use of arm rests. Pt has difficult time sit-stand from low chair. Gait Assessment Gait Gait Assistance Required: Standby Assistance Contact Guard Assist Distance (Feet) 15 Able to Maintain Weight Bearing Status Yes During Gait Assistive Devices Assistive Device Gait Belt Front Wheeled Walker Orthotic/Prosthetic Devices or Brace: Yes Gait Deviations General Gait Pattern Antalgic Decreased Stride Length Decreased Feet Clearance Step-to Gait Factors Limiting Gait Function Factors Limiting Gait Function Decreased Activity Tolerance Decreased Strength Limited Range of Motion Pain Poor Balance Comments Gait Comments Pt able to ambulate to BR SBA- CGA but fatigues quickly due to arm strength. Stair Climbing Assessment Comments Stair Climbing Comments did not attempt M5 PT-IP Objective Assessments Start: 08/06/18 11:54 Freq: NEEDED Status: Active Protocol: Document 08/06/18 10:45 (Rec: 08/06/18 12:28 [email or web address]) Orientation Orientation/Cognition Level of Alertness Alert Orientation Name Age Birthday Month Date Year Day of Week Place Situation Language Function Ability No Deficits Noted Safety Awareness Understands Safety Issues Memory Description No Deficits Noted Gross Range of Motion Upper Extremity ROM Assessment Within Functional Limits Lower Extremity ROM Assessment Left Impaired Impairments a splint in place with an guanaco wrap (from tibial tuberosity to metatarsal) Strength Upper Extremity Strength Assessment Within Functional Limits Lower Extremity Strength Assessment Left Impaired Comments Strength Comments a splint in place with an guanaco wrap (from tibial tuberosity to metatarsal) TDWB Coordination Assessment Gross Coordination Gross Coordination WNL Assessment Finger to Nose Test Normal Performance Pronation/Supination Test Normal Performance Sensation Assessment Sensation Gross Sensation Left LE Impaired Light Touch Impaired Proprioception (Position) Impaired Sensation Description Numbness Comments Sensation Comments decreased sensation to LT and pressure at L toes but able to feel them Muscle Tone Muscle Tone WNL Yes M6 PT-IP Treatment Start: 08/06/18 11:54 Freq: NEEDED Status: Active Protocol: Document 08/06/18 10:45 (Rec: 08/06/18 12:28 [email or web address]) Physical Therapy Treatment Education Education Provided Precautions Weight Bearing Status Post-Op Packet Safety M7 PT-IP Assessment and Plan Start: 08/06/18 11:54 Freq: NEEDED Status: Active Protocol: Document 08/06/18 15:20 CLB (Rec: 08/06/18 15:51 CLB [id number]) PT Summary Assessment and Plan Summary Impairments Pain ROM Strength Balance Bed Mobility Transfers Gait Activity Tolerance Assessment Summary Pt able to perform all mobility SBA-CGA but fatigues quickly. Pt has difficulty with sit<>stand from low surfaces as he is tall and TDWB on LLE. Pt has a leg scooter being delivered tomorrow to hospital, pt stated he has used a leg scooter before. Goals Bed Mobility Goal Independent Transfer Goal Independent Front Wheeled Walker Gait Goal Independent Front Wheel Walker Gait Distance 150 Other Goals to clear 1 step with AD SBA Days to Meet Goals 5 Frequency of Treatment Frequency Of Treatment Twice a Day Treatment Plan Physical Therapy Treatment Plan Bed Mobility Training Transfer Training Gait Training Therapeutic Exercise Balance Retraining Post Op Education Discharge Planning Hot or Cold Pack Other Recommendations and Next Treatment STS and transfer training as Focus lisa (from toilet and chair) gait traing as lisa, leg scooter training and stair training as pt friend's home has one platform stair to enter. Recommendations To Nursing Amount of Assist Needed 1 Person Assist Discharge Recommendations PT Discharge Recommendations Home with Assistance Other Discharge Recommendations pt plans to d/c to his friend home and will have 2 other friends to assist him medically and physically, along with new ordered DME from online. Recommended pt to acquire Leg Ship Propeller Finisher scooter to improve mobility and safety. Pt will be safe to d/c to friend's home with their assistance once he is medically stable. Equipment Needed for Home Before leg boat outboard engine mechanic scooter, WC Discharge
--- NOTE | 2018-08-06 16:00 | OT.IP.EVAL ---
Current Diagnoses Type 2 diabetes mellitus without complications (08/05/18) Chronic kidney disease, unspecified (08/05/18) Other fracture of lower end of left tibia, subsequent encounter for closed fracture with routine healing (08/05/18) Past Medical History (Last Reviewed 08/05/18 @ 09:04 by Wong Rosario DO) Atrial arrhythmia (Acute) Cholecystectomy planned (Acute) Constipation (Acute) Diabetes mellitus (Acute) Hernia (Acute) Hernia, umbilical (Acute) Hypertension (Acute) Hypothyroidism (acquired) (Acute) Normocytic anemia (Acute) Surgical History (Last Reviewed 08/05/18 @ 09:04 by Wong Rosario DO) Hx of inguinal hernia surgery (Acute) Occupational Therapy Inpatient Evaluation/Re-Eval M1 PT/OT-IP Prior Functional Status Start: 08/06/18 11:54 Freq: NEEDED Status: Active Protocol: Document 08/06/18 16:00 SARAH (Rec: 08/06/18 17:11 SARAH [id number]) Medical Review Prior Functional Status Medical History Reviewed Yes Diet/Fluid Consistency Regular Communication WNL Mobility and Gait Pt independent without a device prior to injury. Activities of Daily Living and IADL's Pt independent with all self care, IADLS, drove prior to injury. Prior Functional Level (Other details) Pt normally lives with helpful roommate in house in [place], [place]. He has been staying at his father's [place] [address] recently to get it ready for sale as his father in January 2018. 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 Social History Household Members friend(s) Living Arrangements House Number of Floors (Floors) One Floor Number of Stairs To Enter/Railing? 1 DAVID Home Environment Standard Height Toilet High Toilet Tub/Shower Home Equipment Front Wheel Walker Master Police Detective Bed Rails Employment Status Self-Employed Additional Social History Comment Pt admitted 08/02/18 with L tib /fib fx s/p IM nailing of tibia 08/02. He d/c'd from [facility] to [facility] to be near surgeon's office ,but had two falls there and was readmitted 08/05/18. Pt now plans to return home at d/c where he will have 24 hr assist from roommate and 2 friends who live close by. Pt has ordered a lot of equipment on line including bed rail, account maintenance representative, toilet safety frame and knee scooter, lift chair. Notte pt used knee scooter last year due to foot ulcer. M2 OT-IP Current Condition Start: 08/06/18 14:35 Freq: Status: Active Protocol: Document 08/06/18 16:00 PJM (Rec: 08/06/18 17:11 PJ [id number]) Occupational Therapy Current Condition Current Condition Evaluation Date 08/06/18 Treatment Diagnosis decreased self care, functional mobility s/p L tib/ fib fx Diagnosis Onset Date 08/02/18 Post Operative Precautions Other Precautions fall risk Weight Bearing Status Weight Bearing Status Touch Down Weight Bearing Allowed Weight Bearing Amount (enter % LLE or #) (%) M3 OT- IP Subjective and Pain Start: 08/06/18 14:35 Freq: Status: Active Protocol: Document 08/06/18 16:00 PJM (Rec: 08/06/18 17:11 PJ [id number]) OT- Subjective Occupational Therapy Visit Type Type Initial Evaluation Visit Start Time 15:01 Visit Stop Time 15:50 Total Visit Minutes 49 Occupational Therapy Visit Comments Patient Comments I ordered a lot of equipment on line. Patient/Caregiver Goals to return home with roommate/ friends to assist OT Pain Assessment Pain When Pain Assessed After Treatment Pain Present Pain Present Pain Reported Location Left Lower Leg Intensity 2 Scale Used Numeric (1 - 10) Description Aching Acute Management Techniques Distraction Re-positioning Timing of Activity with Medications M4 OT- IP ADL's Start: 08/06/18 14:35 Freq: Status: Active Protocol: Document 08/06/18 16:00 PJM (Rec: 08/06/18 17:11 [facility] [id number]) OT RZA-Kpbd-Bptxheg General Evaluation Self-Feeding Ability Independent OT ADL-Grooming General Evaluation Grooming Ability Standby Assistance Areas Needing Assistance Retrieving/Set-up of Grooming Items Comments OT Grooming Comments seated in chair OT ADL-Oral Care General Eval Oral Care Ability Standby Assistance Areas of Assistance Brushing Teeth Retrieving/Set-Up of Items Comments Oral Care Comments seated in chair OT ADL-Dressing General Eval Upper Body Dressing Ability Independent Areas Needing Assistance Shoes Comments OT Dressing Comments Pt independent donning R shoe seated EOB. He used account maintenance representative to retrieve it from floor OT ADL-Toileting Comments OT Toileting Comments did not occur this session OT ADL-Bathing Bathing Type Bathing Type Shower Devices Bathing Equipment Hand Held Shower Sprayer Tub Transfer Bench Grab Bars Comments OT Bathing Comments Provided education re: use of transfer tub seat, recommend hand held shower hose and methods to keep LLE splint dry. Pt plans to have grab bars installed in tub area M5 OT- IP IADL's Start: 08/06/18 14:35 Freq: Status: Active Protocol: Document 08/06/18 16:00 PJM (Rec: 08/06/18 17:11 [facility] [id number]) OT-Instrumental Activities of Daily Living Deficits IADL Deficits Identified Deficits Home Safety Awareness Awareness of Need for Assistance at Home Good Awareness Ability to Problem Solve Emergency Able to Problem Solve Situations Medication Management Medication Management No Deficits Identified Money Management Money Management No Deficits Identified Meal Preparation Meal Preparation Comments roommate/friends to assist until pt able Hand Candle Dipper Hand Candle Dipper Caregiver Provides Assist Hand Candle Dipper Comments roommate/friends to assist until pt able Driving Driving Comments pt has car with hand controls due to diabetic neuropathy; educated pt re: no driving while on narcotics M6 OT- IP Functional Cognition Start: 08/06/18 14:35 Freq: Status: Active Protocol: Document 08/06/18 16:00 PJM (Rec: 08/06/18 17:11 [facility] [id number]) Cognitive Factors Limiting Selfcare Function Cognitive Ability Level of Alertness Alert Patient Orientation Name Age Birthday Month Date Year Day of Week Place Situation Attention Span Ability Capable of Focused Attention Capable of Sustained Attention Ability to Follow Commands Able to Follow Multi-Step Commands Memory Description No Deficits Noted Safety Awareness No Deficits Noted Problem Solving Ability Needs Assist to Identify Solutions Executive Function Ability No Deficits Noted Abstract Thinking Ability No Deficits Noted Cognitive Comments Cognitive Assessment Comments Pt has obtained some equipt that may not be necessary e.g bed rail and lift chair. OT- Vision and Hearing OT- Hearing Assessment OT- Hearing Assessment WFL OT- Vision Assessment Visual Acuity WFL Glasses All The Time M7 OT- IP Mobility and Balance Start: 08/06/18 14:35 Freq: Status: Active Protocol: Document 08/06/18 16:00 PJM (Rec: 08/06/18 17:11 [facility] [id number]) OT- Bed Mobility Assessment Rolling Type of Rolling Roll to Left Level of Assistance Independent Bedrails Supine to Sit Supine to Sit Assist Independent Scooting Scooting to Edge of Bed Independent OT-Transfer Assessment Sit to and From Stand Sit to and from Stand Contact Guard Assistance 1 Person Assistance Transfers Transfer Ability Standby Assistance 1 Person Assistance Technique Transfer Destination Chair Toilet Transfer Technique Stand Step Pivot Devices Transfer Assistive Devices Gait Belt Front Wheeled Walker OT- Gait Assessment Gait Gait Assistance Required: Standby Assistance Contact Guard Assist Distance (Feet) 20 Able to Maintain Weight Bearing Status Yes During Gait Assistive Devices Assistive Device Gait Belt Front Wheeled Walker Comments Gait Ability Comments pt ambulated 10+10 feet to toilet and back with P.T. OT- Balance Assessment Sitting Balance and Reactions Static Sitting Balance Ability Good Dynamic Sitting Balance Ability Good Standing Balance and Reactions Static Standing Balance Ability Good Dynamic Standing Balance Ability Fair Comments Other Balance Tests/Deviations/Treatment provided education re: methods : to stabilize self when standing for jorge care, LB dressing or grooming at sink M8 OT- IP Objective Assessments Start: 08/06/18 14:35 Freq: Status: Active Protocol: Document 08/06/18 16:00 PJM (Rec: 08/06/18 17:11 PJ [id number]) OT Gross Range of Motion Upper Extremity Range of Motion Assessment Within Functional Limits OT Strength Upper Extremity Strength Assessment Within Functional Limits Hand Switchbox Assembler Strength Hand Dominance Right Comments Strength Comments Pt lacks endurance in BUE due Klinefelter's syndrome OT- Coordination Assessment Comments Coordination Comments BUE WFL OT-Muscle Tone Assessment Muscle Tone WNL Yes OT Sensation Assessment Comments Summary Comments BUE WNL per pt Edema Edema Absent Edema Comments L knee wrapped in coban but appears WNL in size by observation. M9 OT- IP Assessment and Plan Start: 08/06/18 14:35 Freq: Status: Active Protocol: Document 08/06/18 16:00 PJM (Rec: 08/06/18 17:11 [facility] [id number]) OT Summary Assessment and Plan Potential Rehabilitation Potential Good Analytic Complexity at Evaluation Low Summary OT Impairments Strength Balance Functional Mobility Grooming Dressing Toileting Bathing Toilet Transfers Shower Transfers Progress Towards Goals Progressing Toward Goals Assessment Summary Low complexity OT assessment completed on this 52 yr old male readmitted after 2 falls in hotel where he was recovering from recent L tib/ fib fx s/p IM nailing on . Pt currently TDWB only on LLE. Pt presents with decreased balance and difficulty with sustained use of FWW due to chronic BUE weakness. Pt currently has performance deficits in activity tolerance, functional mobility with FWW (pt will try knee scooter tomorrow) standing grooming, LB dressing , bathing and toileting. Pt has initiated ordering multiple pieces of adaptive equipment, some of which may not be necessary. Pt will benefit from 1-2 additional OT visits here to increase independence/safety with basic self care tasks. See goals below. Pt's d/c plan is now home with his supportive roommate and friends who can provide 24 hr assist. He has arranged for transport home. Goals Grooming Goal Independent Dressing Goal Independent Toileting Goal Independent Bathing Goal Minimal Assistance Toilet Transfer Goal Independent ADA High Toilet Toilet Safety Frame Shower Transfer Goal Standby Assistance Tub/Shower Combination Tub Transfer Bench Patient/Caregiver Education Goal Demonstrate Post-Op Precautions Demonstrate Energy Conservation and Pacing OT-Other Goals Grooming to be done standing at sink or seated per pt preference. Days to Meet Goals 2 Frequency of Treatment Frequency Of Treatment Once a Day Treatment Plan OT Treatment Plan ADL Training Functional Mobility Patient/Family Education Discharge Planning Discharge Recommendations OT Discharge Recommendations Home with 24/7 Assist Home Equipment Needs none
[2018-08-06 18:51] LABS: Alanine Aminotransferase 27 IU/L (21-72)
[2018-08-06 19:45] LABS: Hep C Virus Ab w/Reflex Quant NEGATIVE s/c (NEGATIVE)
[2018-08-06 20:21] LABS: HIV 1 and 2 Antibody NEGATIVE (NEGATIVE)
[2018-08-06] MEDS: LEVOTHYROXINE 88 MCG TABLET PO (22:02)
[2018-08-06] MEDS: TELMISARTAN 20 MG TABLET PO (22:02)
[2018-08-06] MEDS: INSULIN GLARGINE 100 UNIT/ML 3ML PEN 26 UNIT SUBCUT (22:04)
[2018-08-07] VITALS (9 sets, daily range): BP systolic 141–158; BP diastolic 70–86; PULSE 74–88; RESP 16–20; TEMP 36.6–37.2; O2SAT 97–100
--- NOTE | 2018-08-07 08:01 | PM.PNPO.1 ---
Subjective Date Patient Seen: 08/07/18 Time Patient Seen: 08:02 Interval history: Doing well. Still wobbly and needing assistance with physical therapy when ambulating. Exam Vital Signs (past 8 hours): - 08/07/18 00:03 08/07/18 02:56 Temperature 98.4 F 97.9 F Pulse Rate 80 76 Respiratory Rate 20 18 Blood Pressure 158/82 H 155/77 H Pulse Oximetry 100 99 Oxygen Delivery Method Room Air Oxygen Flow Rate 0 Const Orientation: alert and oriented x3 Extrem Other: Dressing CDI. Intact sensation but decreased in the feet. Easily moves toes, good capillary refill. Objective Labs Result Diagrams: 08/05/18 08:30 08/05/18 08:30 Labs: Laboratory Results - last 24 hr 08/06/18 08/06/18 08/06/18 18:00 18:00 18:00 ALT 27 Hepatitis C Antibody Negative HIV 1&2 Antibody Negative Assessment & Plan Post-op Postoperative IM nail left tibia fracture Postoperative day: 5 Postoperative status narrative: He is doing well. getting steadier on his feet. Plan is to discharge tomorrow to his friend's house. He is getting his scooter delivered to the hospital today and will do that with therapy.
[2018-08-07] MEDS: METOPROLOL ER 50 MG TABLET PO ×2 (08:48→20:41)
[2018-08-07] MEDS: INSULIN ASPART 100 UNIT/ML INSULN PEN SUBCUT ×3 (09:34→16:39)
[2018-08-07] MEDS: ASPIRIN EC 81 MG TABLET PO (09:37)
--- NOTE | 2018-08-07 10:24 | PT.IPTN ---
Current Diagnoses Type 2 diabetes mellitus without complications (08/05/18) Chronic kidney disease, unspecified (08/05/18) Other fracture of lower end of left tibia, subsequent encounter for closed fracture with routine healing (08/05/18) Physical Therapy Treatment Note M2 PT-IP Current Condition Start: 08/06/18 11:54 Freq: NEEDED Status: Active Protocol: Document 08/06/18 10:45 HH (Rec: 08/06/18 12:28 HH [email or web address]) Physical Therapy Current Condition Current Condition Evaluation Date 08/06/18 Treatment Diagnosis multiple falls s/p L fibular fx, impaired gait and activity tolerance Onset Date 08/05/18 Weight Bearing Status Weight Bearing Status Touch Down Weight Bearing M3 PT-IP Subjective Start: 08/06/18 11:54 Freq: NEEDED Status: Active Protocol: Document 08/07/18 10:16 SA (Rec: 08/07/18 10:24 SA [id number]) Subjective Physical Therapy Visit Type Type Treatment Note Visit Start Time 09:45 Visit Stop Time 10:08 Total Visit Minutes 23 Notes Pt to have scooter delivered between today between 12-2. Plan to do safety training with scooter for afternoon session. Physical Therapy Visit Comments Patient Comments Pt denies pain, agreeable to get up with FWW. Patient Goals To be d/c to his friend's home for recovery. Therapy Pain Assessment Pain Present Pain Present Denied Pain M4 PT-IP Mobility and Gait Start: 08/06/18 11:54 Freq: NEEDED Status: Active Protocol: Document 08/07/18 10:16 SA (Rec: 08/07/18 10:24 [id number]) PT-Transfer Assessment Sit to and From Stand Sit to and from Stand Standby Assistance Use of Upper Extremities Equipment Transfer Assistive Device Gait Belt Front Wheeled Walker Orthotic/Prosthetic Devices or Brace: Yes Transfers Transfer Destination Bed Chair Transfer Ability Level of Assist Contact Guard Assistance Use of Upper Extremities Comments Mobility Comments Pt completes stand pivot txs with CGA and FWW, maintains LLE TDWB well as he does not even put foot on ground at all , shoe donned on RLE for elevation. Gait Assessment Gait Gait Assistance Required: Standby Assistance Contact Guard Assist Distance (Feet) 20 Able to Maintain Weight Bearing Status Yes During Gait Assistive Devices Assistive Device Gait Belt Front Wheeled Walker Orthotic/Prosthetic Devices or Brace: Yes Gait Deviations General Gait Pattern Antalgic Decreased Stride Length Decreased Feet Clearance Step-to Gait Factors Limiting Gait Function Factors Limiting Gait Function Decreased Activity Tolerance Decreased Strength Limited Range of Motion Pain Poor Balance Comments Gait Comments Pt transfers weight to UEs well and maintains TDWBing well with min cues. Hop to gait pattern with SBA-CGA. UE strength is limiting factor. Stair Climbing Assessment Comments Stair Climbing Comments did not attempt M5 PT-IP Objective Assessments Start: 08/06/18 11:54 Freq: NEEDED Status: Active Protocol: Document 08/06/18 10:45 HH (Rec: 08/06/18 12:28 HH [email or web address]) Orientation Orientation/Cognition Level of Alertness Alert Orientation Name Age Birthday Month Date Year Day of Week Place Situation Language Function Ability No Deficits Noted Safety Awareness Understands Safety Issues Memory Description No Deficits Noted Gross Range of Motion Upper Extremity ROM Assessment Within Functional Limits Lower Extremity ROM Assessment Left Impaired Impairments a splint in place with an guanaco wrap (from tibial tuberosity to metatarsal) Strength Upper Extremity Strength Assessment Within Functional Limits Lower Extremity Strength Assessment Left Impaired Comments Strength Comments a splint in place with an guanaco wrap (from tibial tuberosity to metatarsal) TDWB Coordination Assessment Gross Coordination Gross Coordination WNL Assessment Finger to Nose Test Normal Performance Pronation/Supination Test Normal Performance Sensation Assessment Sensation Gross Sensation Left LE Impaired Light Touch Impaired Proprioception (Position) Impaired Sensation Description Numbness Comments Sensation Comments decreased sensation to LT and pressure at L toes but able to feel them Muscle Tone Muscle Tone WNL Yes M6 PT-IP Treatment Start: 08/06/18 11:54 Freq: NEEDED Status: Active Protocol: Document 08/07/18 10:16 SA (Rec: 08/07/18 10:24 [id number]) Physical Therapy Treatment Exercises Exercises Ankle Pumps Gluteal Sets Quad Sets Education Education Provided Precautions Weight Bearing Status Post-Op Packet Safety Other Treatments Other Treatment Performed LLE toe flex/ext. M7 PT-IP Assessment and Plan Start: 08/06/18 11:54 Freq: NEEDED Status: Active Protocol: Document 08/07/18 10:16 SA (Rec: 08/07/18 10:24 [id number]) PT Summary Assessment and Plan Summary Impairments Pain ROM Strength Balance Bed Mobility Transfers Gait Activity Tolerance Assessment Summary Plan to do mobility training with scooter this afternoon, pt will d/c tomorrow around 11 to home with help and support from friends. Pt SBA-CGA with mobility tasks. Frequency of Treatment Frequency Of Treatment Twice a Day Treatment Plan Physical Therapy Treatment Plan Bed Mobility Training Transfer Training Gait Training Therapeutic Exercise Balance Retraining Post Op Education Discharge Planning Hot or Cold Pack Other Recommendations and Next Treatment STS and transfer training as Focus lisa (from toilet and chair) gait training as lisa, leg scooter training and stair training as pt friend's home has one platform stair to enter. Recommendations To Nursing Amount of Assist Needed 1 Person Assist Discharge Recommendations PT Discharge Recommendations Home with Assistance
--- NOTE | 2018-08-07 10:46 | PC.NURSE ---
Pt is a&ox3. He denies pain and is just resting in his chair. Splint to left leg intact with guanaco wrap intact.
--- NOTE | 2018-08-07 12:17 | PT.IPTN ---
Current Diagnoses Type 2 diabetes mellitus without complications (08/05/18) Chronic kidney disease, unspecified (08/05/18) Other fracture of lower end of left tibia, subsequent encounter for closed fracture with routine healing (08/05/18) Physical Therapy Treatment Note M2 PT-IP Current Condition Start: 08/06/18 11:54 Freq: NEEDED Status: Active Protocol: Document 08/06/18 10:45 HH (Rec: 08/06/18 12:28 HH [email or web address]) Physical Therapy Current Condition Current Condition Evaluation Date 08/06/18 Treatment Diagnosis multiple falls s/p L fibular fx, impaired gait and activity tolerance Onset Date 08/05/18 Weight Bearing Status Weight Bearing Status Touch Down Weight Bearing M3 PT-IP Subjective Start: 08/06/18 11:54 Freq: NEEDED Status: Active Protocol: Document 08/07/18 12:00 SA (Rec: 08/07/18 12:17 SA [id number]) Subjective Physical Therapy Visit Type Type Treatment Note Visit Start Time 11:32 Visit Stop Time 12:00 Total Visit Minutes 28 Notes Pt's scooter was delivered and he was eager to try it out. Number of HOUSEKEEPING ATTENDANT Visits 3 Physical Therapy Visit Comments Patient Comments Pt still denies LE pain. Patient Goals To be d/c to his friend's home for recovery. Therapy Pain Assessment Pain Present Pain Present Denied Pain M4 PT-IP Mobility and Gait Start: 08/06/18 11:54 Freq: NEEDED Status: Active Protocol: Document 08/07/18 12:00 SA (Rec: 08/07/18 12:17 SA [id number]) PT-Transfer Assessment Sit to and From Stand Sit to and from Stand Standby Assistance Use of Upper Extremities Equipment Transfer Assistive Device Gait Belt Orthotic/Prosthetic Devices or Brace: Yes Transfers Transfer Destination Chair Transfer Technique Stand Pivot Transfer Ability Level of Assist Contact Guard Assistance Use of Upper Extremities Comments Mobility Comments Worked on transfers with new scooter to/from chair and pt is SBA with min cues. Education for safe use of scooter and use of brakes. Rep present for sizing adjustments. Gait Assessment Gait Gait Assistance Required: Standby Assistance Contact Guard Assist Distance (Feet) 65 Able to Maintain Weight Bearing Status Yes During Gait Assistive Devices Assistive Device Gait Belt Gait Deviations General Gait Pattern Step-to Gait Factors Limiting Gait Function Factors Limiting Gait Function Decreased Activity Tolerance Decreased Strength Comments Gait Comments Gait training with leg scooter and SBA-CGA for about 65 feet , pt able to cover mare distance with less fatigue and mantain TDWB better. Adjusted platform and paddig for support and knee protection. Stair Climbing Assessment Comments Stair Climbing Comments Attempted platform step with FWW and pt unable to hop high enough. M5 PT-IP Objective Assessments Start: 08/06/18 11:54 Freq: NEEDED Status: Active Protocol: Document 08/06/18 10:45 HH (Rec: 08/06/18 12:28 HH [email or web address]) Orientation Orientation/Cognition Level of Alertness Alert Orientation Name Age Birthday Month Date Year Day of Week Place Situation Language Function Ability No Deficits Noted Safety Awareness Understands Safety Issues Memory Description No Deficits Noted Gross Range of Motion Upper Extremity ROM Assessment Within Functional Limits Lower Extremity ROM Assessment Left Impaired Impairments a splint in place with an guanaco wrap (from tibial tuberosity to metatarsal) Strength Upper Extremity Strength Assessment Within Functional Limits Lower Extremity Strength Assessment Left Impaired Comments Strength Comments a splint in place with an guanaco wrap (from tibial tuberosity to metatarsal) TDWB Coordination Assessment Gross Coordination Gross Coordination WNL Assessment Finger to Nose Test Normal Performance Pronation/Supination Test Normal Performance Sensation Assessment Sensation Gross Sensation Left LE Impaired Light Touch Impaired Proprioception (Position) Impaired Sensation Description Numbness Comments Sensation Comments decreased sensation to LT and pressure at L toes but able to feel them Muscle Tone Muscle Tone WNL Yes M6 PT-IP Treatment Start: 08/06/18 11:54 Freq: NEEDED Status: Active Protocol: Document 08/07/18 12:00 SA (Rec: 08/07/18 12:17 [id number]) Physical Therapy Treatment Exercises Exercises Ankle Pumps Gluteal Sets Quad Sets Education Education Provided Precautions Weight Bearing Status Post-Op Packet Safety Other Treatments Other Treatment Performed LLE toe flex/ext. M7 PT-IP Assessment and Plan Start: 08/06/18 11:54 Freq: NEEDED Status: Active Protocol: Document 08/07/18 12:00 SA (Rec: 08/07/18 12:17 [id number]) PT Summary Assessment and Plan Summary Assessment Summary Safety and mobility training completed with leg scooter. Pt SBA-CGA and feels much safer with scooter vs FWW. Unable to do single step with FWW at this time. Frequency of Treatment Frequency Of Treatment Twice a Day Treatment Plan Physical Therapy Treatment Plan Bed Mobility Training Transfer Training Gait Training Therapeutic Exercise Balance Retraining Post Op Education Discharge Planning Hot or Cold Pack Other Recommendations and Next Treatment STS and transfer training as Focus lisa (from toilet and chair) gait traing as lisa, leg scooter training and stair training as pt friend's home has one platform stair to enter. Recommendations To Nursing Amount of Assist Needed 1 Person Assist Discharge Recommendations PT Discharge Recommendations Home with Assistance Equipment Needed for Home Before Obtained scooter today, no Discharge further equipment needs.
--- NOTE | 2018-08-07 13:12 | OT.IP.TRT ---
Current Diagnoses Type 2 diabetes mellitus without complications (08/05/18) Chronic kidney disease, unspecified (08/05/18) Other fracture of lower end of left tibia, subsequent encounter for closed fracture with routine healing (08/05/18) Occupational Therapy Treatment Note M2 OT-IP Current Condition Start: 08/06/18 14:35 Freq: Status: Active Protocol: Document 08/06/18 16:00 PJM (Rec: 08/06/18 17:11 PJM [id number]) Occupational Therapy Current Condition Current Condition Evaluation Date 08/06/18 Treatment Diagnosis decreased self care, functional mobility s/p L tib/ fib fx Diagnosis Onset Date 08/02/18 Post Operative Precautions Other Precautions fall risk Weight Bearing Status Weight Bearing Status Touch Down Weight Bearing Allowed Weight Bearing Amount (enter % LLE or #) (%) M3 OT- IP Subjective and Pain Start: 08/06/18 14:35 Freq: Status: Active Protocol: Document 08/07/18 13:12 PJM (Rec: 08/07/18 15:55 PJM [id number]) OT- Subjective Occupational Therapy Visit Type Type Treatment Note Visit Start Time 12:40 Visit Stop Time 13:12 Total Visit Minutes 32 Notes Pt received new knee scooter this AM and wants to try it again for further practice. Occupational Therapy Visit Comments Patient Comments My arms get tired when I am using this. Patient/Caregiver Goals to go home tomorrow OT Pain Assessment Pain When Pain Assessed After Treatment Pain Present Pain Present Pain Reported Location Left Lower Leg Intensity 2 Scale Used Numeric (1 - 10) Description Aching Acute M4 OT- IP ADL's Start: 08/06/18 14:35 Freq: Status: Active Protocol: Document 08/07/18 13:12 PJM (Rec: 08/07/18 15:55 PJM [id number]) OT ADL-Dressing Comments OT Dressing Comments pt declines to change clothes today OT ADL-Toileting General Evaluation Toileting Ability Standby Assistance Devices Toileting Assistive Devices Urinal Comments OT Toileting Comments pt needs to stand to urinate OT ADL-Bathing Devices Bathing Equipment Tub Transfer Bench Comments OT Bathing Comments pt states he ordered transfer tub seat M7 OT- IP Mobility and Balance Start: 08/06/18 14:35 Freq: Status: Active Protocol: Document 08/07/18 13:12 PJM (Rec: 08/07/18 15:55 PJM [email or web address]) OT-Transfer Assessment Sit to and From Stand Sit to and from Stand Standby Assistance Transfers Transfer Ability Contact Guard Assistance 1 Person Assistance Technique Transfer Destination Car Chair Transfer Technique to knee scooter Devices Transfer Assistive Devices Gait Belt Comments Mobility Comments Pt requesting to practice mobility with knee scooter. Provided education re: car transfer techniques. He has arranged a ride home tomorrow via a medical van ride service . He would like to sit in front passenger seat. OT- Gait Assessment Gait Gait Assistance Required: Contact Guard Assist Distance (Feet) 40 Able to Maintain Weight Bearing Status Yes During Gait Assistive Devices Assistive Device Gait Belt Comments Gait Ability Comments Pt needing CGA for mobility with knee scooter with one mild loss of balance. He has trouble turning it in tight spaces and needs mod verbal cues to problem solve where to place scooter for safest transfer back to chair. 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 M9 OT- IP Assessment and Plan Start: 08/06/18 14:35 Freq: Status: Active Protocol: Document 08/07/18 13:12 PJM (Rec: 08/07/18 15:55 PJM [id number]) OT Summary Assessment and Plan Potential Rehabilitation Potential Good Summary OT Impairments Strength Balance Assessment Summary Pt would benefit from more practice with knee scooter. His BUE's were more fatigued this afternoon and pt needed 3 -4 rest breaks to mobilize 40 ft with knee scooter. Discussed possibility of manual w/c as back up plan. Pt has difficulty turning scooter in tight spaces and educated pt that he may need to leave it parked outside of door to bedroom or bathroom and then use FWW instead depending on space available. Would recommend W/C for long distances in community being pushed by helper due to pt's limited BUE endurance. Will discuss with P.T. Plan one more OT visit in AM to practice adapted ADL techniques and functional mobility. Goals Grooming Goal Independent Dressing Goal Independent Toileting Goal Independent Bathing Goal Minimal Assistance Toilet Transfer Goal Independent ADA High Toilet Toilet Safety Frame Shower Transfer Goal Standby Assistance Tub/Shower Combination Tub Transfer Bench Patient/Caregiver Education Goal Demonstrate Post-Op Precautions Demonstrate Energy Conservation and Pacing OT-Other Goals Grooming to be done standing at sink or seated per pt preference. Days to Meet Goals 1 Frequency of Treatment Frequency Of Treatment Once a Day Treatment Plan OT Treatment Plan ADL Training Functional Mobility Patient/Family Education Discharge Planning Discharge Recommendations OT Discharge Recommendations Home with 16/10 Assist Home Equipment Needs none
--- NOTE | 2018-08-07 18:54 | PC.NURSE ---
UP ON HIS SCOOTER WITH SBA OUT THE DOOR TO ROOM 231 AND BACK, NO DIFFICULTY NO NEED FOR HELP.
[2018-08-07] MEDS: LEVOTHYROXINE 88 MCG TABLET PO (20:41)
[2018-08-07] MEDS: TELMISARTAN 20 MG TABLET PO (20:41)
[2018-08-07] MEDS: INSULIN GLARGINE 100 UNIT/ML 3ML PEN 26 UNIT SUBCUT (20:42)
--- NOTE | 2018-08-08 00:30 | PC.NURSE ---
2300- POD#5 ORIF for R side tib/fib fracture; splint & guanaco wrap covering site CDI; CMS intact. Pt using scooter to move around 1PA w/ bed alarm on. IV saline locked; VSS; A+Ox4. BG checks taking place; pt denies any pain or needs upon assessment.
[2018-08-08 05:00] VITALS: BP 119/50; PULSE 75; RESP 18; TEMP 36.8; O2SAT 97
[2018-08-08 07:29] VITALS: BP 147/84; PULSE 100; RESP 18; TEMP 36.3; O2SAT 99
--- NOTE | 2018-08-08 07:37 | PM.PNPO.1 ---
Subjective Date Patient Seen: 08/08/18 Time Patient Seen: 07:37 Interval history: He is doing well. The scooter was delivered yesterday and he now is steady moving along with it. he is set up for a ride to his friend's house today and has living arrangements for the next few weeks. Exam Vital Signs (past 8 hours): - 08/08/18 05:00 Temperature 98.2 F Pulse Rate 75 Respiratory Rate 18 Blood Pressure 119/50 L Pulse Oximetry 97 Oxygen Delivery Method Room Air Oxygen Flow Rate 0 Extrem Other: Dressing CDI. Easily wiggles toes. Good capillary refill. Objective Labs Result Diagrams: 08/05/18 08:30 08/05/18 08:30 Assessment & Plan Post-op Postoperative Postoperative day: 6 Postoperative status: doing well Postoperative status narrative: He is doing well. plan to discharge today.
--- NOTE | 2018-08-08 07:38 | PM.DS.1 ---
History of Present Illness Date Patient Seen: 08/08/18 Time Patient Seen: 07:38 Chief complaint: Multiple falls Narrative: 52-year-old male who sustained a left tibia and fibula fracture on 08/02/2016. He was brought to the operating room that afternoon and underwent IM nailing. He had been doing well and was discharged the next day. However, once he was on his own, he had great difficulty with getting around. He was not feeling steady on his feet. He did not think he would be able to handle this on his own and he was readmitted on postop day 3. Discharge Providers Date of admission: 08/05/18 09:20 Discharge Date: 08/08/18 Consults: 08/05/18 12:32 Consult to Physical Therapy Evaluate & Treat Comment: touchdown weightbearing Physician Instructions: Evaluate and Treat 08/06/18 12:26 Consult to Occupational Therapy Evaluate & Treat Comment: Physician Instructions: Evaluate and treat Discharge provider: Hollis Chappell MD Summary Discharge Diagnosis: Left tibia and fibula fracture Hospital Course: He was readmitted on postop day 3. We had him working with physical therapy. He was able to obtain a scooter and was much tighter on this. Arrangements were made so that he could live with a friend afterwards. He also is going to follow-up with a local orthopedic surgeon with [facility] in the [place] area for his 1st follow-up visit and then back here for the remainder when he comes home. Throughout this he has had very little pain. his blood sugars were elevated 1st but then began coming back down to a more reasonable range. Status at Discharge Cognitive/behavioral status at discharge: oriented Functional status at discharge: uses cane/walker Overall status at discharge: patient is progressing back to baseline Exam Vital Signs (past 8 hours): - 08/08/18 05:00 Temperature 98.2 F Pulse Rate 75 Respiratory Rate 18 Blood Pressure 119/50 L Pulse Oximetry 97 Oxygen Delivery Method Room Air Oxygen Flow Rate 0 Const Orientation: alert and oriented x3 Extrem Other: Left leg-dressing CDI. Easily wiggles toes. Good capillary refill. Decreased sensation from his neuropathy in the feet. Objective Labs Result Diagrams: 08/05/18 08:30 08/05/18 08:30 Discharge Plan Discharge Plan Patient Disposition: Home Discharge comment: f/u for wound check in 1 wk. Discharge Med Rec/Prescriptions Prescriptions: Continued acetaminophen [Acetaminophen Extra Strength] 500 mg tablet See Rx Instructions .ROUTE .COMPLEX PRN (Reason: pain) Qty: 60 RF: 0 metoprolol succinate 50 mg tablet extended release 24 hr 50 mg PO BID Qty: 30 RF: 0 levothyroxine 88 mcg tablet 88 mcg PO QPM Qty: 30 RF: 0 ferrous sulfate 325 mg (65 mg iron) tablet 325 mg PO QPM Qty: 30 RF: 0 insulin glargine 100 unit/mL (3 mL) insulin pen 26 unit subcut QPM Qty: 6 RF: 0 telmisartan 20 mg tablet 20 mg PO BEDTIME RF: 0 Provider Discharge Instructions Diet: Carb-consistent/Diabetic Activity: TDWB on LLE Skin/Wound/Dressing Care Report to your healthcare provider any signs of infection, such as:: chills, fever, night sweats, increased pain, unusual drainage and unusual redness Dressing: keep intact Visit Report/Discharge Packet Visit Report Forms: Stroke Signs & Symptoms Discharge Data Attending Provider: Hollis Chappell Admit Date/Time: 08/05/18 09:20
--- NOTE | 2018-08-08 07:42 | P.DS_ITS ---
History of Present Illness Date Patient Seen: 08/08/18 Time Patient Seen: 07:38 Chief complaint: Multiple falls Narrative: 52-year-old male who sustained a left tibia and fibula fracture on 0 08/02/2016. He was brought to the operating room that afternoon and underwent IM nailing. He had been doing well and was discharged the next day. However, once he was on his own, he had great difficulty with getting around. He was not feeling steady on his feet. He did not think he would be able to handle this on his own and he was readmitted on postop day 3. Discharge Providers Date of admission: 08/05/18 09:20 Discharge Date: 08/08/18 Consults: 08/05/18 12:32 Consult to Physical Therapy Evaluate & Treat Comment: touchdown weightbearing Physician Instructions: Evaluate and Treat 08/06/18 12:26 Consult to Occupational Therapy Evaluate & Treat Comment: Physician Instructions: Evaluate and treat Discharge provider: Hollis Chappell MD Summary Discharge Diagnosis: Left tibia and fibula fracture Hospital Course: He was readmitted on postop day 3. We had him working with physical therapy. He was able to obtain a scooter and was much tighter on this. Arrangements were made so that he could live with a friend afterwards. He also is going to follow-up with a local orthopedic surgeon with [facility] in the [place] area for his 1st follow-up visit and then back here for the remainder when he comes home. Throughout this he has had very little pain. his blood sugars were elevated 1st but then began coming back down to a more reasonable ra nge. Status at Discharge Cognitive/behavioral status at discharge: oriented Functional status at discharge: uses cane/walker Overall status at discharge: patient is progressing back to baseline Exam Vital Signs (past 8 hours): - 08/08/18 05:00 Temperature 98.2 F Pulse Rate 75 Respiratory Rate 18 Blood Pressure 119/50 L Pulse Oximetry 97 Oxygen Delivery Method Room Air Oxygen Flow Rate 0 Const Orientation: alert and oriented x3 Extrem Other: Left leg-dressing CDI. Easily wiggles toes. Good capillary refill. Decreased sensation from his neuropathy in the feet. Objective Labs Result Diagrams: 08/05/18 08:30 08/05/18 08:30 Discharge Plan Discharge Plan Patient Disposition: Home Discharge comment: f/u for wound check in 1 wk. Discharge Med Rec/Prescriptions Prescriptions: Continued acetaminophen [Acetaminophen Extra Strength] 500 mg tablet See Rx Instructions .ROUTE .COMPLEX PRN (Reason: pain) Qty: 60 RF: 0 metoprolol succinate 50 mg tablet extended release 24 hr 50 mg PO BID Qty: 30 RF: 0 levothyroxine 88 mcg tablet 88 mcg PO QPM Qty: 30 RF: 0 ferrous sulfate 325 mg (65 mg iron) tablet 325 mg PO QPM Qty: 30 RF: 0 insulin glargine 100 unit/mL (3 mL) insulin pen 26 unit subcut QPM Qty: 6 RF: 0 telmisartan 20 mg tablet 20 mg PO BEDTIME RF: 0 Provider Discharge Instructions Diet: Carb-consistent/Diabetic Activity: TDWB on LLE Skin/Wound/Dressing Care Report to your healthcare provider any signs of infection, such as:: chills, fever, night sweats, increased pain, unusual drainage and unusual redness Dressing: keep intact Visit Report/Discharge Packet Visit Report Forms: Stroke Signs & Symptoms Discharge Data Attending Provider: Hollis Chappell Admit Date/Time: 08/05/18 09:20
--- NOTE | 2018-08-08 09:10 | OT.IP.TRT ---
Current Diagnoses Type 2 diabetes mellitus without complications (08/05/18) Chronic kidney disease, unspecified (08/05/18) Other fracture of lower end of left tibia, subsequent encounter for closed fracture with routine healing (08/05/18) Occupational Therapy Treatment Note M3 OT- IP Subjective and Pain Start: 08/06/18 14:35 Freq: Status: Active Protocol: Document 08/08/18 09:10 PJM (Rec: 08/08/18 13:42 PJM [id number]) OT- Subjective Occupational Therapy Visit Type Type Administrative Note Visit Start Time 09:04 Visit Stop Time 09:10 Total Visit Minutes 6 Notes Pt awake and alert in chair. He declines shower and is already dressed for d/c. He has obtained all necessary bathroom safety equipt. He has a disabled parking permit. P.T. to review scooter use in small spaces with pt this AM, but pt may need to use FWW in small spaces for increased stability. Pt has arranged for ride with W/C van service. Recommended pt obtain rental manual w/c for community mobility due to limited BUE endurance when using scooter. Pt verbalizes understanding of all education and is ready for d/c today from OT standpoint. No charge.
[2018-08-08] MEDS: METOPROLOL ER 50 MG TABLET PO (09:22)
[2018-08-08] MEDS: ASPIRIN EC 81 MG TABLET PO (09:23)
[2018-08-08] MEDS: INSULIN ASPART 100 UNIT/ML INSULN PEN SUBCUT (09:24)
--- NOTE | 2018-08-08 11:18 | PT.IPTN ---
Current Diagnoses Type 2 diabetes mellitus without complications (08/05/18) Chronic kidney disease, unspecified (08/05/18) Other fracture of lower end of left tibia, subsequent encounter for closed fracture with routine healing (08/05/18) Physical Therapy Treatment Note M2 PT-IP Current Condition Start: 08/06/18 11:54 Freq: NEEDED Status: Active Protocol: Document 08/06/18 10:45 HH (Rec: 08/06/18 12:28 HH [email or web address]) Physical Therapy Current Condition Current Condition Evaluation Date 08/06/18 Treatment Diagnosis multiple falls s/p L fibular fx, impaired gait and activity tolerance Onset Date 08/05/18 Weight Bearing Status Weight Bearing Status Touch Down Weight Bearing M3 PT-IP Subjective Start: 08/06/18 11:54 Freq: NEEDED Status: Active Protocol: Document 08/08/18 11:02 SA (Rec: 08/08/18 11:18 SA [id number]) Subjective Physical Therapy Visit Type Type Treatment Note Visit Start Time 09:45 Visit Stop Time 10:05 Total Visit Minutes 20 Notes Pt to D/C at 1100 today. Number of SALES COACH Visits 4 Physical Therapy Visit Comments Patient Comments Pt still denies LE pain. Patient Goals To be d/c to his friend's home for recovery. Therapy Pain Assessment Pain Present Pain Present Denied Pain M4 PT-IP Mobility and Gait Start: 08/06/18 11:54 Freq: NEEDED Status: Active Protocol: Document 08/08/18 11:02 SA (Rec: 08/08/18 11:18 [id number]) PT-Bed Mobility Assessment Supine to Sit Supine to Sit Independent Sit to Supine Sit to Supine Independent Scooting Scooting to Edge of Bed Independent Scooting Up and Down in Bed Independent PT-Transfer Assessment Sit to and From Stand Sit to and from Stand Standby Assistance Use of Upper Extremities Equipment Transfer Assistive Device Gait Belt Orthotic/Prosthetic Devices or Brace: Yes Transfers Transfer Destination Bed Chair Transfer Technique Stand Pivot Transfer Ability Level of Assist Contact Guard Assistance Use of Upper Extremities Comments Mobility Comments Focused on safe stand pivot txs with FWW and Scooter, Pt is SBA-CGA with both but needs some cues for movement planning and optimal safety. Plans to use FWW vs Scooter in tight spcaes ie: bathroom and bedroom. Advised pt to have assistance with trasnfers when he gets home initially. Gait Assessment Gait Gait Assistance Required: Standby Assistance Distance (Feet) 40 Able to Maintain Weight Bearing Status Yes During Gait Assistive Devices Assistive Device Gait Belt Gait Deviations General Gait Pattern Step-to Gait Factors Limiting Gait Function Factors Limiting Gait Function Decreased Activity Tolerance Decreased Strength Comments Gait Comments Gait training with leg scooter and focus on turning safely, pt quite fatigued this AM , so limited distance, encouraged pt to continue with UE strengthening program as this will help him manage his scooter better. M5 PT-IP Objective Assessments Start: 08/06/18 11:54 Freq: NEEDED Status: Active Protocol: Document 08/06/18 10:45 HH (Rec: 08/06/18 12:28 HH [email or web address]) Orientation Orientation/Cognition Level of Alertness Alert Orientation Name Age Birthday Month Date Year Day of Week Place Situation Language Function Ability No Deficits Noted Safety Awareness Understands Safety Issues Memory Description No Deficits Noted Gross Range of Motion Upper Extremity ROM Assessment Within Functional Limits Lower Extremity ROM Assessment Left Impaired Impairments a splint in place with an guanaco wrap (from tibial tuberosity to metatarsal) Strength Upper Extremity Strength Assessment Within Functional Limits Lower Extremity Strength Assessment Left Impaired Comments Strength Comments a splint in place with an guanaco wrap (from tibial tuberosity to metatarsal) TDWB Coordination Assessment Gross Coordination Gross Coordination WNL Assessment Finger to Nose Test Normal Performance Pronation/Supination Test Normal Performance Sensation Assessment Sensation Gross Sensation Left LE Impaired Light Touch Impaired Proprioception (Position) Impaired Sensation Description Numbness Comments Sensation Comments decreased sensation to LT and pressure at L toes but able to feel them Muscle Tone Muscle Tone WNL Yes M6 PT-IP Treatment Start: 08/06/18 11:54 Freq: NEEDED Status: Active Protocol: Document 08/08/18 11:02 (Rec: 08/08/18 11:18 [id number]) Physical Therapy Treatment Exercises Exercises Ankle Pumps Gluteal Sets Quad Sets Education Education Provided Precautions Weight Bearing Status Post-Op Packet Safety Other Treatments Other Treatment Performed LLE toe flex/ext. M7 PT-IP Assessment and Plan Start: 08/06/18 11:54 Freq: NEEDED Status: Active Protocol: Document 08/08/18 11:02 SA (Rec: 08/08/18 11:18 SA [email or web address]) PT Summary Assessment and Plan Summary Assessment Summary Pt to D/C home today with ly and FWW, has all needed equipment and help at home hi is staying at. Frequency of Treatment Frequency Of Treatment Twice a Day Recommendations To Nursing Amount of Assist Needed 1 Person Assist Discharge Recommendations PT Discharge Recommendations Home with Assistance
--- NOTE | 2018-08-08 11:50 | PC.NURSE ---
Discharge Pt home meds returned to pt from pharmacy, pt took home with him. d/c instructions provided to pt. Aware to contact MD with any addtional questions or concerns. Left in cabulance with all his belonigngs. denied pain, no Rx given at d/c. PIV removed without issue prior to d/c.
[2018-08-09 16:26] LABS: Hepatitis B Surf AB Imm QUANT < 5 mIU/mL (> 9)
[2018-08-10 11:58] LABS: Hepatitis B Surf Ab Qualitativ Nonreactive (Nonreactive)
== END 2018-08-08 11:10 | disposition home or self-care (01) ==
LOC: ED 09:13 → AC 09:20
PROVIDERS: Admitting Provider Orthopaedic Surgery; Emergency Provider Emergency Medicine; Visit Provider Orthopaedic Surgery
DX: S82.392D Other fracture of lower end of left tibia, subsequent encounter for closed fracture with routine healing (principal); E11.9 Type 2 diabetes mellitus without complications; W18.39XA Other fall on same level, initial encounter; I12.9 Hypertensive chronic kidney disease with stage 1 through stage 4 chronic kidney disease, or unspecified chronic kidney disease; N18.3 Chronic kidney disease, stage 3 (moderate); Z79.4 Long term (current) use of insulin
CPT/HCPCS: 36415; 36591; 80048; 82805; 82962; 84460; 85025; 86317; 86703; 86706; 86803; 96360; 96361; 96372; 97116; 97162; 97165; 97530; 97535; 99283; G0378